=== PATIENT | male | born 1950 | race Two or more races ===

== ENCOUNTER 2024-06-08 23:50 | Emergency (ER) | payer MEDICAID, SELFPAY ==
[2024-06-09 00:26] VITALS: BP 160/83; PULSE 82; RESP 18; TEMP 36.6; O2SAT 97; BMI 32.5
--- NOTE | 2024-06-09 00:33 | PD.EDRME ---
Rapid Medical Screening Exam E Arrival date/time: 06/08/24 23:50 74-year-old male past medical history of BPH and prostatitis presents emergency department complaining of acute urinary retention. Chief Complaint: Urogenital-Male Time Seen by Provider: 06/09/24 00:17 Vital signs: Vital Signs Temperature 98 F 06/09/24 00:26 Pulse Rate 82 06/09/24 00:26 Respiratory Rate 18 06/09/24 00:26 Blood Pressure 160/83 H 06/09/24 00:26 Pulse Oximetry (%) 97 06/09/24 00:26 Oxygen Delivery Method Room Air 06/09/24 00:26 Vital signs reviewed by provider: Yes
[2024-06-09 01:28] LABS: Alanine Aminotransferase < 7 U/L (10-49); Albumin, Serum 4.6 gm/dL (3.4-4.8); Albumin/Globulin Ratio 1.4 (1.2-2.2); Alkaline Phosphatase 459 U/L (46-116); Anion Gap 10 (7-16); Aspartate Amino Transferase 23 U/L (0-34); BUN/Creatinine Ratio 17 Ratio (12-20); Bilirubin,Total 0.2 mg/dL (0.3-1.2); Blood Urea Nitrogen 34 mg/dL (9-23); Carbon Dioxide 19.5 mMol/L (20.0-31.0); Chloride 106 mMol/L (98-107); Estimated Creatinine Clearance 35.5 mL/min (>60); Globulin 3.3 gm/dL (2.3-3.5); Glucose 118 mg/dL (74-106); Osmolality,Calculated 278 (275-295); Potassium 4.9 mMol/L (3.4-5.1); Sodium 135 mMol/L (136-145); Total Protein 7.9 gm/dL (5.7-8.2); eGFR 34 See Note
[2024-06-09 01:30] LABS: Basophils % (Auto) 0 % (0-2.5); Eosinophils # (Auto) 0.2 Thou/mm3 (0.0-0.5); Eosinophils % (Auto) 2 % (0-10); Hematocrit 32.4 % (41.0-53.0); Hemoglobin 10.3 g/dL (13.5-16.0); Immature Granulocytes % (Auto) 0 % (0-0); Immature Granulocytes Auto 0.03 Thou/mm3 (0.00-0.00); Lymphocytes # (Auto) 1.1 Thou/mm3 (1.0-4.8); Lymphocytes % (Auto) 11 % (10-50); Mean Corpuscular HGB Conc 31.8 g/dl (31.0-37.0); Mean Corpuscular Hemoglobin 23.3 pg (25.0-35.0); Mean Corpuscular Volume 73 fL (80-100); Monocytes # (Auto) 0.9 Thou/mm3 (0.0-0.8); Monocytes % (Auto) 10 % (0-12); Neutrophils # (Auto) 7.2 Thou/mm3 (1.8-7.7); Neutrophils % (Auto) 77 % (37-80); Nucleated Red Blood Cell % 0 /100 WBC (0); Platelet Count 239 Thou/mm3 (140-440); RDW Standard Deviation 45.6 fL (35.1-43.9); Red Blood Count 4.42 Miln/mm3 (4.50-5.90); White Blood Count 9.4 Thou/mm3 (3.8-10.6)
--- NOTE | 2024-06-09 02:49 | EDNOTE_ITS ---
ED Male Genitalurinary RME/HPI General Chief complaint: Urogenital-Male Stated complaint: Unable to urinate Time Seen by Provider: 06/09/24 00:17 Arrival date/time: 06/08/24 23:50 RME / HPI RME / HPI Narrative: 06/08/24 23:50 74-year-old male past medical history of BPH and prostatitis presents emergency department complaining of acute urinary retention. ----- Dr. Stanford?s Main ED Evaluation: 74yo male with a history of BPH, prostatitis presents to the ED for a chief complaint of urinary retention. Patient states he had his parham catheter removed 2 months ago, reporting he was able to urinate small amounts at a time. He states he was unable to urinate this afternoon and has had lower abdominal pain, so he came in for evaluation. He denies any fever, chills or any other associated symptoms. No known allergies. Patient's urologist is Dr. Enamorado in [place]. Related Data Home Medications ?Medication ?Instructions ?Recorded ?Confirmed metformin 1,000 mg tablet 1,000 mg PO BID 10/21/17 11/30/21 atorvastatin 20 mg tablet 20 mg PO HS 09/14/21 11/14/21 gabapentin 300 mg capsule 300 mg PO TID 09/14/21 11/30/21 Previous Rx's ?Medication ?Instructions ?Recorded cephalexin 500 mg capsule 500 mg PO TID #20 caps 12/01/22 amoxicillin 500 mg-potassium 1 tab PO BID #10 tabs 01/07/24 clavulanate 125 mg tablet (Augmentin) doxycycline monohydrate 100 mg 100 mg PO BID Urinary tract 06/09/24 capsule infection 10 days #20 caps Allergies Allergy/AdvReac Type Severity Reaction Status Date / Time No Known Allergies Allergy Verified 01/11/24 12:16 Review of Systems Review of Systems Systems Reviewed: All systems reviewed, normal except as documented Past Medical History Past Medical History NEUROLOGIC: Negative Neurological Disorders or Seizures CARDIAC: Positive Cardiac Disorders and Hypertension; Negative Congestive Heart Failure RESPIRATORY: Negative Chronic Obstructive Pulmonary Disease (COPD) or Asthma GASTROINTESTINAL: Positive Gastroesophageal Reflux Disease; Negative Gastrointestinal Disorders, Gastrointestinal Bleed or Irritable Bowel GENITOURINARY: Positive Genitourinary Disorders, Prostate Cancer and Benign P rostatic Hyperplasia; Negative Renal Disease MUSCULOSKELETAL: Negative Musculoskeletal Disorders ENT: Negative Glaucoma ENDOCRINE: Positive Diabetes Mellitus Type 2; Negative Endocrine Disorders or Diabetes Mellitus Type 1 HEMATOLOGIC: Positive Anemia; Negative Blood Disorders or Sickle Cell Disease OTHER HISTORY: Positive Blood Transfusions, Radiation Therapy and Prostate Cancer; Negative Autoimmune Disease, Blood Transfusion Reaction, Anesthesia Reactions, MRSA or Clostridium Difficile Family History FAMILY HISTORY: Negative Family Cardiac Disorders Surgical History SURGICAL: Negative Ear Surgery, Abdominal Surgery, Joint Replacement, Neurologic Surgery or Vasectomy Social History SMOKING STATUS: Former smoker SECOND HAND EXPOSURE: No ED Exam Narrative Physical exam: GENERAL APPEARANCE: alert and oriented x 4, well-developed, well-nourished, in [id number] pain distress VITALS: All vitals were reviewed and the pulse ox is 97% on room air, which is normal according to my interpretation. HEENT: Normocephalic, atraumatic; pupils equal, round, reactive to light; EOMI; mucous membranes pink, moist; oropharynx clear NECK: Supple LUNGS: CTABL; no wheezes, no rales, no rhonchi HEART: Regular rate, regular rhythm; normal S1, S2; no murmurs ABDOMEN: non distended; normal BS; soft, moderate suprapubic tenderness, no guarding, no rebound; no masses, palpable bladder, no hernia BACK: no CVA tenderness EXTREMITIES: atraumatic; no edema NEUROLOGIC: awake; alert and oriented x4; cranial nerves II-XII grossly intact; no focal sensory or motor deficits PSYCHIATRIC: appropriate mood and affect SKIN: warm, dry, normal color; no rashes Course Quality Measures none Orders Category Date Time Status [place] to [place] Routine Care 06/09/24 00:33 Ordered CBC Stat Lab 06/09/24 00:52 Completed CMP [Comprehensive Metabolic Panel] Stat Lab 06/09/24 00:52 Completed Urinalysis, C/S if Indicated Stat Lab 06/09/24 03:22 Completed Urine Culture Stat Lab 06/09/24 03:22 Received Lidocaine Jelly 2% Urojet [Xylocaine Jelly 2% Urojet] Med 06/09/24 02:52 Discontinued See Dose Instructions TOP X1 ONE cefTRIAXone [Rocephin] 1,000 mg Med 06/09/24 05:28 Discontinued Lidocaine 1% 20 ml [Xylocaine 1% 20 ML] 2.1 ml IM X1 Vital Signs Vital signs: Vital Signs Temperature 98 F 06/09/24 00:26 Pulse Rate 82 06/09/24 00:26 Respiratory Rate 18 06/09/24 00:26 Blood Pressure 160/83 H 06/09/24 00:26 Pulse Oximetry (%) 97 06/09/24 00:26 Oxygen Delivery Method Room Air 06/09/24 00:26 Urogenital - Male MDM Narrative MDM Narrative:: Scribe Attestation: 06/09/24 - Gardenia Mora am scribing for and in the presence of Dr. Stanford. Patient data External records reviewed:: [facility] previous records (Per chart review, patient was seen here on 02/15/24 for gross hematuria.) Clinical information provided by:: patient Social determinants that could affect healthcare access:: none Patient has the following chronic illnesses:: HTN, BPH, prostatitis How is presenting disease/condition affected by chronic disease/condition?: exacerbated by Evaluation data The following diagnostics were reviewed and interpreted by me:: lab results Lab and/or radiology exams considered but not ordered:: none Interpretation Summary: UA is positive for a UTI, according to my interpretation. Medications / Prescriptions Medications or Prescriptions considered but not ordered:: none Medication administrations:: Medication Administration History Discontinued Medications Ceftriaxone Sodium 1,000 mg/ (Lidocaine HCl 2.1 ml) 0 mg IM X1 ONE Stop: 06/09/24 05:29 Last Admin: 06/09/24 05:42 Dose: 1,000 mg Documented By: GB Lidocaine HCl (Lidocaine Jelly 2% (Urojet) 10 Ml Tube) 0 ml TOP X1 ONE Stop: 06/09/24 02:53 Last Admin: 06/09/24 04:07 Dose: 10 ml Documented By: SE see above Consultations Consultation(s) initiated? (list below): No Diagnosis Urogenital Male Differential Diagnosis: urinary tract infection, prostatitis, acute retention of urine and other (pyelonephritis) Most likely diagnosis given after review of the tests above:: see below Admission Indicated Admission indicated?: not indicated Admission Request Was there a request for admission?: No Disposition Plan Disposition Plan: Discharge Discharge Attestation Discharge Attestation: The patient and all family members were given an opportunity to ask questions and understood the discharge instructions. Discharge instructions specifically effects, indications for sooner follow up or return to the emergency department, and the expected course of current diagnosis. Patient condition: Stable Discharge Plan Plan Patient Disposition: HOME (Self Care) Disposition Comment: Stable for discharge Patient condition on transfer: Stable Prescriptions/Referrals Prescriptions/Med Rec: New doxycycline monohydrate 100 mg capsule 100 mg PO BID 10 Days Qty: 20 0RF No Action metformin 1,000 mg Tablet 1,000 mg PO BID atorvastatin 20 mg tablet 20 mg PO HS Patient Comments: TAKE 1 TABLET BY MOUTH AT BEDTIME gabapentin 300 mg capsule 300 mg PO TID Patient Comments: TAKE 1 CAPSULE BY MOUTH THREE TIMES DAILY FOR LEG PAIN cephalexin 500 mg capsule 500 mg PO TID Qty: 20 0RF amoxicillin-pot clavulanate [Augmentin] 500-125 mg tablet 1 tab PO BID Qty: 10 0RF Referrals: Bro Venegas MD ([facility]) [Primary Care Provider] - In 1 week Problem List Clinical Impression: Acute urinary retention, Urinary tract infection Patient/Caregiver Discharge Instructions Discharge Activity: activity as tolerated Education Materials: Urinary Tract Infections in Men, ED Urinary Retention, Male Additional Instructions: You should follow-up with your urologist over in [place] within the next week. You should also follow-up with your primary care doctor within the next several days If you are not improving within the next 48 hours or you notice yourself worsening in any way please return to the emergency department and we will help you You have a prescription for antibiotics waiting for you at your pharmacy. These are called doxycycline. You should take your antibiotics as directed until they are completely gone Print Language: Polish Stand Alone Forms: Antonette Award Info., Patient Portal Info Letter
[2024-06-09 03:50] LABS: Collection Type, Urine Clean Catch; Squamous Epithelial Cell,Urine 0 /hpf (0-5)
[2024-06-09] MEDS: LIDOCAINE JELLY 2% (Urojet) 10 ML TUBE TOP (04:07)
[2024-06-09 04:46] LABS: Bacteria,Urine 1+; Bilirubin,Urine Negative (Negative); Blood,Urine 2+ (Negative); Color,Urine Lt-Yellow (Lt Yel-Yel); Glucose, Urine Negative (Negative); Ketones,Urine Negative (Negative); Leukocyte Esterase,Urine Positive (Negative); Nitrite,Urine Positive (Negative); Protein,Urine 1+ (Neg - Trace); RBC,Urine 39 /hpf (0-3); Specific Gravity,Urine 1.013 (1.001-1.035); Urobilinogen,Urine Negative mg/dL (0.0-1.0); WBC,Urine 352 /hpf (0-5)
[2024-06-09 04:48] LABS: Clarity,Urine Hazy (Clear/Hazy); Culture Indicated,Urine Yes
[2024-06-09] MEDS: cefTRIAXone 1,000 MG, LIDOCAINE 1% 20 ML 2.1 ML IM (05:42)
== END 2024-06-09 06:02 | disposition home or self-care (01) ==
PROVIDERS: Emergency Provider Emergency Medicine; PCP Obstetrics & Gynecology
DX: N40.1 Benign prostatic hyperplasia with lower urinary tract symptoms (principal); R33.8 Other retention of urine; N39.0 Urinary tract infection, site not specified
CPT/HCPCS: 51702; 36415; 80053; 81001; 85025; 87077; 87086; 87186; 96372; 99283; J0696; J3490

== ENCOUNTER 2024-06-10 08:31 | Emergency (ER) | payer MEDICAID, SELFPAY ==
[2024-06-10 08:32] VITALS: BMI 32.9
--- NOTE | 2024-06-10 08:37 | EDNOTE_ITS ---
ED General RME/HPI General Chief complaint: General Adult/Misc Complain Stated complaint: NEED HODGE CHANGED Time Seen by Provider: 06/10/24 08:33 Arrival date/time: 06/10/24 08:31 74-year-old male with history of urinary retention presents emergency department today requesting Hodge catheter removal patient reports that he is leaking around his catheter and no longer wants a catheter he does not want a catheter placed just wants it removed. Patient reports no fever nausea or vomiting no headache dizziness weakness Limitations: no limitations Related Data Home Medications ?Medication ?Instructions ?Recorded ?Confirmed metformin 1,000 mg tablet 1,000 mg PO BID 10/21/17 11/30/21 atorvastatin 20 mg tablet 20 mg PO HS 09/14/21 11/14/21 gabapentin 300 mg capsule 300 mg PO TID 09/14/21 11/30/21 Previous Rx's ?Medication ?Instructions ?Recorded cephalexin 500 mg capsule 500 mg PO TID #20 caps 12/01/22 amoxicillin 500 mg-potassium 1 tab PO BID #10 tabs 01/07/24 clavulanate 125 mg tablet (Augmentin) doxycycline monohydrate 100 mg 100 mg PO BID Urinary tract 06/09/24 capsule infection 10 days #20 caps Allergies Allergy/AdvReac Type Severity Reaction Status Date / Time No Known Allergies Allergy Verified 01/11/24 12:16 Review of Systems Review of Systems Systems Reviewed: All systems reviewed, normal except as documented Constitutional Constitutional: Reports system reviewed and no additional complaints, except as documented, Denies fever(s) and Denies headache(s) Eyes Eyes: Reports system reviewed and no additional complaints, except as documented and Denies blurry vision ENT Ears, Nose, Mouth, and Throat: Reports system reviewed and no additional complaints, except as documented, Denies headache(s), Denies nasal congestion and Denies nasal discharge Cardiovascular Cardiovascular: Reports system reviewed and no additional complaints, except as documented, Denies chest pain and Denies dyspnea Respiratory Respiratory: Reports system reviewed and no additional complaints, except as documented, Denies chest congestion, Denies cough and Denies dyspnea Gastrointestinal Gastrointestinal: Reports system reviewed and no additional complaints, except as documented and Denies abdominal pain Genitourinary Genitourinary: Reports system reviewed and no additional complaints, except as documented and Reports other (Hodge catheter in place) Integumentary/Breasts Skin/Breast: Reports system reviewed and no additional complaints, except as documented and Denies rash Neurologic Neurologic: Reports system reviewed and no additional complaints, except as documented, Reports as per HPI and Denies headache(s) Past Medical History Past Medical History NEUROLOGIC: Negative Neurological Disorders or Seizures CARDIAC: Positive Cardiac Disorders and Hypertension; Negative Congestive Heart Failure RESPIRATORY: Negative Chronic Obstructive Pulmonary Disease (COPD) or Asthma GASTROINTESTINAL: Positive Gastroesophageal Reflux Disease; Negative Gastrointestinal Disorders, Gastrointestinal Bleed or Irritable Bowel GENITOURINARY: Positive Genitourinary Disorders, Prostate Cancer and Benign Prostatic Hyperplasia; Negative Renal Disease MUSCULOSKELETAL: Negative Musculoskeletal Disorders ENT: Negative Glaucoma ENDOCRINE: Positive Diabetes Mellitus Type 2; Negative Endocrine Disorders or Diabetes Mellitus Type 1 HEMATOLOGIC: Positive Anemia; Negative Blood Disorders or Sickle Cell Disease OTHER HISTORY: Positive Blood Transfusions, Radiation Therapy and Prostate Cancer; Negative Autoimmune Disease, Blood Transfusion Reaction, Anesthesia Reactions, MRSA or Clostridium Difficile Family History FAMILY HISTORY: Negative Family Cardiac Disorders Surgical History SURGICAL: Negative Ear Surgery, Abdominal Surgery, Joint Replacement, Neurologic Surgery or Vasectomy Social History SMOKING STATUS: Never smoker SECOND HAND EXPOSURE: No ED Exam General Limitations: Present no limitations General appearance: Present alert and in no apparent distress Head Head exam: Present atraumatic Eye Eye exam: Present normal appearance, PERRL and EOMI ENT ENT exam: Present normal exam, normal oropharynx and mucous membranes moist Neck Neck exam: Present normal inspection, full ROM and trachea midline Chest Chest inspection: Present normal inspection and symmetric chest wall rise Respiratory Respiratory exam: Present normal lung sounds bilaterally Cardiovascular Cardiovascular exam: Present regular rate, normal rhythm and normal heart sounds Abdominal Exam Abdominal exam: Present soft and normal bowel sounds exam: Present normal testicular lie and other (Hodge catheter in place); Absent testicular tenderness, urethral discharge or scrotal swelling Extremities Exam Extremities exam: Present normal inspection and full ROM Back Exam Back exam: Present normal inspection and full ROM Neurological Exam Neurological exam: Present alert, oriented X3 and CN II-XII intact Psychiatric Psychiatric exam: Present normal affect and normal mood Skin Skin exam: Present warm, dry, intact and normal color Course Quality Measures none Orders Category Date Time Status Urinary Catheter, Remove NOW Care 06/10/24 08:49 Ordered Vital Signs Vital signs: Vital Signs Temperature 98.3 F 06/10/24 08:39 Pulse Rate 94 06/10/24 08:39 Respiratory Rate 16 06/10/24 08:39 Blood Pressure 139/76 H 01/09/25 08:39 Pulse Oximetry (%) 99 06/10/24 08:39 Oxygen Delivery Method Room Air 06/10/24 08:39 O2 saturation 99% room air within normal limits [facility] Patient data External records reviewed:: [facility] previous records Clinical information provided by:: patient Social determinants that could affect healthcare access:: none Patient has the following chronic illnesses:: see hx How is presenting disease/condition affected by chronic disease/condition?: caused by Evaluation data The following diagnostics were reviewed and interpreted by me:: other (specify) (N/A) Lab and/or radiology exams considered but not ordered:: Consider not ordered Interpretation Summary: N/A Medications Medications considered but not ordered:: No meds Medication administrations:: No meds Consultations Consultation(s) initiated? (list below): No Diagnosis Differential Diagnosis ED Complaint MDM: Hodge catheter removal, urinary retention Most likely diagnosis given after review of the tests above:: Chronic urinary retention, Hodge catheter in place Admission Indicated Admission indicated?: not indicated Explain why admission is indicated or not indicated:: reviewed by me Admission Request Was there a request for admission?: No Disposition Plan Disposition Plan: Discharge Discharge Attestation Discharge Attestation: The patient and all family members were given an opportunity to ask questions and understood the discharge instructions. Discharge instructions specifically effects, indications for sooner follow up or return to the emergency department, and the expected course of current diagnosis. Patient condition: Stable Medical Decision Making [facility] Narrative MDM Narrative: 74-year-old male with history of urinary retention presents emergency department today requesting Hodge catheter removal patient reports that he is leaking around his catheter and no longer wants a catheter he does not want a catheter placed just wants it removed. Patient reports no fever nausea or vomiting no headache dizziness weakness On exam patient well-appearing patient does not appear ill or toxic patient is soft nontender abdomen Patient's Hodge catheter was removed patient is urinating without difficulty It was clearly explained to the patient that he may not need to return for replacement of Hodge catheter patient states understanding For emergent concerns patient instructed to return immediately otherwise follow- up primary care doctor next 24 to 48 hours for further evaluation Differential Diagnosis Differential Diagnosis: Hodge catheter removal, urinary retention Medical Records Medical records reviewed: Yes I reviewed the patient's medical records. Discharge Plan Plan Patient Disposition: HOME (Self Care) Disposition Comment: Stable Prescriptions/Referrals Prescriptions/Med Rec: No Action metformin 1,000 mg Tablet 1,000 mg PO BID atorvastatin 20 mg tablet 20 mg PO HS Patient Comments: TAKE 1 TABLET BY MOUTH AT BEDTIME gabapentin 300 mg capsule 300 mg PO TID Patient Comments: TAKE 1 CAPSULE BY MOUTH THREE TIMES DAILY FOR LEG PAIN cephalexin 500 mg capsule 500 mg PO TID Qty: 20 0RF amoxicillin-pot clavulanate [Augmentin] 500-125 mg tablet 1 tab PO BID Qty: 10 0RF doxycycline monohydrate 100 mg capsule 100 mg PO BID 10 Days Qty: 20 0RF Problem List Clinical Impression: Retention of urine, Hodge catheter problem Patient/Caregiver Discharge Instructions Education Materials: ED Hodge Catheter, Care Additional Instructions: Please follow up with your primary care doctor in the next 24-48hrs for any worsening symptoms return here immediately Print Language: Belarusian Stand Alone Forms: Antonette Award Info., Patient Portal Info Letter PA/SUGAR MIXER Supervising Physician PA/JITENDRA Supervising Physician: Dr. Bella
[2024-06-10 08:39] VITALS: BP 139/76; PULSE 94; RESP 16; TEMP 36.8; O2SAT 99; BMI 31.1
== END 2024-06-10 08:51 | disposition home or self-care (01) ==
LOC: SERX 08:59
PROVIDERS: Emergency Provider Emergency Medicine
DX: R33.8 Other retention of urine (principal)
CPT/HCPCS: 99282

== ENCOUNTER 2024-06-23 08:46 | Emergency (ER) | payer MEDICAID, SELFPAY ==
[2024-06-23 09:06] VITALS: BP 124/63; PULSE 97; RESP 18; TEMP 36.7; O2SAT 99; BMI 30.7
--- NOTE | 2024-06-23 09:47 | EDNOTE_ITS ---
ED Male Genitalurinary RME/HPI General Chief complaint: Urogenital-Male Stated complaint: urine is plugged, cannot urinate since 1200 am Time Seen by Provider: 06/23/24 08:59 Arrival date/time: 06/23/24 08:46 74-year-old male with acute on chronic urinary retention secondary to prostamegaly presents to the emergency department today stating he is having urinary retention patient reports that he follows with Dr. Enamorado in [place] urologist there are no other associated symptoms or aggravating factors no other modifying factors, patient denies taking medication before coming to ER today Limitations: no limitations Related Data Home Medications ?Medication ?Instructions ?Recorded ?Confirmed metformin 1,000 mg tablet 1,000 mg PO BID 10/21/17 11/30/21 atorvastatin 20 mg tablet 20 mg PO HS 09/14/21 11/14/21 gabapentin 300 mg capsule 300 mg PO TID 09/14/21 11/30/21 Previous Rx's ?Medication ?Instructions ?Recorded cephalexin 500 mg capsule 500 mg PO TID #20 caps 12/01/22 amoxicillin 500 mg-potassium 1 tab PO BID #10 tabs 01/07/24 clavulanate 125 mg tablet (Augmentin) Allergies Allergy/AdvReac Type Severity Reaction Status Date / Time No Known Allergies Allergy Verified 06/23/24 08:47 Review of Systems Review of Systems Systems Reviewed: All systems reviewed, normal except as documented Constitutional Constitutional: Reports system reviewed and no additional complaints, except as documented, Denies fever(s) and Denies headache(s) Eyes Eyes: Reports system reviewed and no additional complaints, except as documented and Denies blurry vision ENT Ears, Nose, Mouth, and Throat: Reports system reviewed and no additional complaints, except as documented, Denies headache(s), Denies nasal congestion and Denies nasal discharge Cardiovascular Cardiovascular: Reports system reviewed and no additional complaints, except as documented, Denies chest pain and Denies dyspnea Respiratory Respiratory: Reports system reviewed and no additional complaints, except as documented, Denies chest congestion, Denies cough and Denies dyspnea Gastrointestinal Gastrointestinal: Reports system reviewed and no additional complaints, except as documented and Denies abdominal pain Genitourinary Genitourinary: Reports system reviewed and no additional complaints, except as documented, Reports oliguria, Denies testicular mass, Denies testicular pain and Reports other (Urinary retention) Integumentary/Breasts Skin/Breast: Reports system reviewed and no additional complaints, except as documented and Denies rash Neurologic Neurologic: Reports system reviewed and no additional complaints, except as documented, Reports as per HPI and Denies headache(s) Past Medical History Past Medical History NEUROLOGIC: Negative Neurological Disorders or Seizures CARDIAC: Positive Cardiac Disorders and Hypertension; Negative Congestive Heart Failure RESPIRATORY: Negative Chronic Obstructive Pulmonary Disease (COPD) or Asthma GASTROINTESTINAL: Positive Gastroesophageal Reflux Disease; Negative Gastrointestinal Disorders, Gastrointestinal Bleed or Irritable Bowel GENITOURINARY: Positive Genitourinary Disorders, Prostate Cancer and Benign Prostatic Hyperplasia; Negative Renal Disease MUSCULOSKELETAL: Negative Musculoskeletal Disorders ENT: Negative Glaucoma ENDOCRINE: Positive Diabetes Mellitus Type 2; Negative Endocrine Disorders or Diabetes Mellitus Type 1 HEMATOLOGIC: Positive Anemia; Negative Blood Disorders or Sickle Cell Disease OTHER HISTORY: Positive Blood Transfusions, Radiation Therapy and Prostate Cancer; Negative Autoimmune Disease, Blood Transfusion Reaction, Anesthesia Reactions, MRSA or Clostridium Difficile Family History FAMILY HISTORY: Negative Family Cardiac Disorders Surgical History SURGICAL: Negative Ear Surgery, Abdominal Surgery, Joint Replacement, Neurologic Surgery or Vasectomy Social History SMOKING STATUS: Never smoker SECOND HAND EXPOSURE: No ED Exam General Limitations: Present no limitations General appearance: Present alert and in no apparent distress Head Head exam: Present atraumatic Eye Eye exam: Present normal appearance, PERRL and EOMI ENT ENT exam: Present normal exam, normal oropharynx and mucous membranes moist Neck Neck exam: Present normal inspection, full ROM and trachea midline Chest Chest inspection: Present normal inspection and symmetric chest wall rise Respiratory Respiratory exam: Present normal lung sounds bilaterally Cardiovascular Cardiovascular exam: Present regular rate, normal rhythm and normal heart sounds Abdominal Exam Abdominal exam: Present soft and normal bowel sounds; Absent distention, tenderness, guarding, rebound or rigidity Extremities Exam Extremities exam: Present normal inspection and full ROM Back Exam Back exam: Present normal inspection and full ROM Neurological Exam Neurological exam: Present alert, oriented X3, CN II-XII intact, normal gait and reflexes normal; Absent motor sensory deficit Psychiatric Psychiatric exam: Present normal affect and normal mood Skin Skin exam: Present warm, dry, intact and normal color Course Quality Measures none Orders Category Date Time Status Urinary Catheter QS Care 06/23/24 09:46 Completed Lidocaine Jelly 2% Urojet [Xylocaine Jelly 2% Urojet] Med 06/23/24 09:09 Discontinued See Dose Instructions TOP X1 ONE Vital Signs Vital signs: Vital Signs Temperature 98.0 F 01/22/25 09:06 Pulse Rate 97 06/23/24 09:06 Respiratory Rate 18 06/23/24 09:06 Blood Pressure 124/63 06/23/24 09:06 Pulse Oximetry (%) 99 06/23/24 09:06 Oxygen Delivery Method Room Air 06/23/24 09:06 O2 saturation 99% room air within normal limits Urogenital - Male MDM Narrative MDM Narrative:: 74-year-old male with acute on chronic urinary retention secondary to prostamegaly presents to the emergency department today stating he is having urinary retention patient reports that he follows with Dr. Enamorado in [place] urologist there are no other associated symptoms or aggravating factors no other modifying factors, patient denies taking medication before coming to ER today Ojeda catheter was placed patient reports significant improvement of his symptoms patient reports he would like to go home at this time Patient discharged home in no distress to follow-up with urologist in the next 24 to 48 hours and for any worsening symptoms to return to the ER immediately Patient data External records reviewed:: [facility] previous records Clinical information provided by:: patient Social determinants that could affect healthcare access:: none Patient has the following chronic illnesses:: Urinary retention How is presenting disease/condition affected by chronic disease/condition?: caused by Evaluation data The following diagnostics were reviewed and interpreted by me:: other (specify) (N/A) Lab and/or radiology exams considered but not ordered:: Consider not ordered Interpretation Summary: N/A Medications / Prescriptions Medications or Prescriptions considered but not ordered:: Given Medication administrations:: Medication Administration History Discontinued Medications Lidocaine HCl (Lidocaine Jelly 2% (Urojet) 10 Ml Tube) 0 ml TOP X1 ONE Stop: 06/23/24 09:10 Last Admin: 06/23/24 09:48 Dose: 10 ml Documented By: GM Given Consultations Consultation(s) initiated? (list below): No Diagnosis Urogenital Male Differential Diagnosis: urinary tract infection, epididymitis, genital herpes simplex and prostatitis Most likely diagnosis given after review of the tests above:: Urinary retention Admission Indicated Admission indicated?: not indicated Admission Request Was there a request for admission?: No Disposition Plan Disposition Plan: Discharge Discharge Attestation Discharge Attestation: The patient and all family members were given an opportunity to ask questions and understood the discharge instructions. Discharge instructions specifically effects, indications for sooner follow up or return to the emergency department, and the expected course of current diagnosis. Patient condition: Stable Discharge Plan Plan Patient Disposition: HOME (Self Care) Disposition Comment: Stable Prescriptions/Referrals Prescriptions/Med Rec: No Action metformin 1,000 mg Tablet 1,000 mg PO BID atorvastatin 20 mg tablet 20 mg PO HS Patient Comments: TAKE 1 TABLET BY MOUTH AT BEDTIME gabapentin 300 mg capsule 300 mg PO TID Patient Comments: TAKE 1 CAPSULE BY MOUTH THREE TIMES DAILY FOR LEG PAIN cephalexin 500 mg capsule 500 mg PO TID Qty: 20 0RF amoxicillin-pot clavulanate [Augmentin] 500-125 mg tablet 1 tab PO BID Qty: 10 0RF Problem List Clinical Impression: Acute on chronic urinary retention Patient/Caregiver Discharge Instructions Additional Instructions: Please follow-up with your urologist as discussed for worsening symptoms return immediately Print Language: [place] Stand Alone Forms: Antonette Award Info., Patient Portal Info Letter PA/[employer] Supervising Physician PA/JITENDRA Supervising Physician:
[2024-06-23] MEDS: LIDOCAINE JELLY 2% (Urojet) 10 ML TUBE TOP (09:48)
--- NOTE | 2024-06-23 10:04 | PC.NURSE ---
PT'S HODGE BAG CHANGED INTO LEG BAG AND PT GIVEN AN EXTRA LEG BAG WELL.
== END 2024-06-23 10:05 | disposition home or self-care (01) ==
LOC: SERX 10:09
PROVIDERS: Emergency Provider Emergency Medicine
DX: N40.1 Benign prostatic hyperplasia with lower urinary tract symptoms (principal); R33.8 Other retention of urine
CPT/HCPCS: 51702; 99283

== ENCOUNTER 2024-06-26 11:11 | Emergency (ER) | payer MEDICAID, SELFPAY ==
[2024-06-26 11:12] VITALS: BMI 30.5
[2024-06-26 12:03] VITALS: BP 136/82; PULSE 87; RESP 19; TEMP 36.8; O2SAT 99; BMI 29.7
--- NOTE | 2024-06-26 12:07 | EDNOTE_ITS ---
ED General RME/HPI General Chief complaint: Abdominal Pain Stated complaint: LOWER ABD PAIN, HODGE LEAKING AND UNABLE TO VOID Time Seen by Provider: 06/26/24 11:37 Arrival date/time: 06/26/24 11:11 RME / HPI RME / HPI narrative: 74-year-old male patient with significant history of prostate problem, came in for evaluation regarding urine leaking around the meatus around the Hodge catheter. This been ongoing since 3 days prior to ER visit. This time associated with suprapubic discomfort and distention. Currently taking antibiotic for UTI. Denies any fever denies any vomiting denies any other complaints. Patient is currently followed by a urologist and oncologist. Related Data Home Medications ?Medication ?Instructions ?Recorded ?Confirmed metformin 1,000 mg tablet 1,000 mg PO BID 10/21/17 11/30/21 atorvastatin 20 mg tablet 20 mg PO HS 09/14/21 11/14/21 gabapentin 300 mg capsule 300 mg PO TID 09/14/21 11/30/21 Previous Rx's ?Medication ?Instructions ?Recorded cephalexin 500 mg capsule 500 mg PO TID #20 caps 12/01/22 amoxicillin 500 mg-potassium 1 tab PO BID #10 tabs 01/07/24 clavulanate 125 mg tablet (Augmentin) Allergies Allergy/AdvReac Type Severity Reaction Status Date / Time No Known Allergies Allergy Verified 06/26/24 11:17 Review of Systems Review of Systems Narrative Review of Systems: Review of system reviewed and within normal limits except mentioned in HPI ED Exam Narrative Physical exam: VITAL SIGNS: Reviewed. GENERAL APPEARANCE: Alert and interactive, follows commands, no acute distress, HEAD AND FACE: Non-traumatic. ENT: PERRL, pink conjunctivitis, eyelid no trauma, Mucous membrane moist. NECK: Supple, nontender, no nuchal rigidity. CHEST: No tenderness, no crepitus, no paradoxical movement, no retractions. LUNGS: Clear, well ventilated, symmetric, no rales, no wheezing, no ronchi, no stridor, good breath sounds bilaterally. HEART: Regular rate, regular rhythm, no murmur, no gallops. ABDOMEN: Soft, positive bowel sounds, nondistended, no guarding, nontender, no rebound, no masses, RECTAL: Deferred. GENITAL: Hodge catheter intact, urine leaking around the meatus/Hodge catheter NEUROLOGICAL: Gross motor function intact sensory function intact, Appropriate for age. MUSCULOSKELETAL: low back nontender, full range of motion. EXTREMITIES: Nontender, full range of motion. SKIN: Color pink, dry, no rash, no lacerations, no abrasions, no contusions. LYMPHATICS: Deferred. Course Quality Measures none Orders Category Date Time Status Urinary Catheter QS Care 06/26/24 12:31 Active Urinary Catheter, Remove ONCE Care 06/26/24 12:31 Completed Lidocaine Jelly 2% Urojet [Xylocaine Jelly 2% Urojet] Med 06/26/24 12:06 Discontinued See Dose Instructions TOP X1 ONE Vital Signs Vital signs: Vital Signs Temperature 98.3 F 06/26/24 12:03 Pulse Rate 87 06/26/24 12:03 Respiratory Rate 19 06/26/24 12:03 Blood Pressure 136/82 H 06/26/24 12:03 Pulse Oximetry (%) 99 06/26/24 12:03 Oxygen Delivery Method Room Air 06/26/24 12:03 [facility] Patient data External records reviewed:: None Clinical information provided by:: patient Social determinants that could affect healthcare access:: none Patient has the following chronic illnesses:: Prostate problem, chronic Hodge catheter How is presenting disease/condition affected by chronic disease/condition?: exacerbated by Evaluation data The following diagnostics were reviewed and interpreted by me:: other (specify) (None) Lab and/or radiology exams considered but not ordered:: None Interpretation Summary: None Medications Medications considered but not ordered:: None Medication administrations:: Medication Administration History Discontinued Medications Lidocaine HCl (Lidocaine Jelly 2% (Urojet) 10 Ml Tube) 0 ml TOP X1 ONE Stop: 06/26/24 12:07 Last Admin: 06/26/24 12:30 Dose: 10 ml Documented By: TINA Lidocaine jelly Consultations Consultation(s) initiated? (list below): No Diagnosis Differential Diagnosis ED Complaint MDM: Encounter Hodge catheter replacement Most likely diagnosis given after review of the tests above:: Encounter with Hodge catheter replacement Admission Indicated Admission indicated?: not indicated Explain why admission is indicated or not indicated:: Stable Admission Request Was there a request for admission?: No Disposition Plan Disposition Plan: Discharge Discharge Attestation Discharge Attestation: The patient and all family members were given an opportunity to ask questions and understood the discharge instructions. Discharge instructions specifically effects, indications for sooner follow up or return to the emergency department, and the expected course of current diagnosis. Patient condition: Stable Medical Decision Making MDM Narrative MDM Narrative: 74-year-old male patient with significant history of prostate problem, came in for evaluation regarding urine leaking around the meatus around the Hodge catheter. This been ongoing since 3 days prior to ER visit. This time associated with suprapubic discomfort and distention. Currently taking antibiotic for UTI. Denies any fever denies any vomiting denies any other complaints. Patient is currently followed by a urologist and oncologist. Hodge catheter was removed and replaced with [place] 20 Hodge catheter and patient is tolerating the procedure well. Patient is happy and ready to go home Patient appears nontoxic and hemodynamically stable. Patient discharged home and instructed to follow-up with primary care provider in 24 to 48 hours. Instructed to return to the emergency department immediately if worsening of symptoms Differential Diagnosis Differential Diagnosis: Encounter Hodge catheter replacement Discharge Plan Plan Patient Disposition: HOME (Self Care) Disposition Comment: Stable Prescriptions/Referrals Prescriptions/Med Rec: No Action metformin 1,000 mg Tablet 1,000 mg PO BID atorvastatin 20 mg tablet 20 mg PO HS Patient Comments: TAKE 1 TABLET BY MOUTH AT BEDTIME gabapentin 300 mg capsule 300 mg PO TID Patient Comments: TAKE 1 CAPSULE BY MOUTH THREE TIMES DAILY FOR LEG PAIN cephalexin 500 mg capsule 500 mg PO TID Qty: 20 0RF amoxicillin-pot clavulanate [Augmentin] 500-125 mg tablet 1 tab PO BID Qty: 10 0RF Problem List Clinical Impression: Encounter for Hodge catheter replacement Patient/Caregiver Discharge Instructions Discharge Activity: activity as tolerated Education Materials: ED Hodge Catheter, Care Additional Instructions: Thank you for the opportunity for serving you today. You are stable for discharged . You are advised to: Follow-up with your PCP in 1 to 2 days Return to ED for worsening of symptoms Increase oral fluids Print Language: Korean Stand Alone Forms: Antonette Award Info., Patient Portal Info Letter PA/[employer] Supervising Physician LATOYA/JITENDRA Supervising Physician: MD korin
[2024-06-26] MEDS: LIDOCAINE JELLY 2% (Urojet) 10 ML TUBE TOP (12:30)
== END 2024-06-26 12:46 | disposition home or self-care (01) ==
PROVIDERS: Emergency Provider Emergency Medicine; PCP Nurse Practitioner Family
DX: Z46.6 Encounter for fitting and adjustment of urinary device (principal); N39.0 Urinary tract infection, site not specified
CPT/HCPCS: 51702; 99283

== ENCOUNTER 2024-08-03 09:09 | Outpatient (CLI) | payer MEDICAID, SELFPAY ==
[2024-07-30 13:15] VITALS: BMI 28.1
[2024-08-02 11:02] LABS: Basophils % (Auto) 1 % (0-2.5); Eosinophils # (Auto) 0.1 Thou/mm3 (0.0-0.5); Eosinophils % (Auto) 2 % (0-10); Hematocrit 36.8 % (41.0-53.0); Hemoglobin 11.4 g/dL (13.5-16.0); Immature Granulocytes % (Auto) 0 % (0-0); Immature Granulocytes Auto 0.02 Thou/mm3 (0.00-0.00); Lymphocytes # (Auto) 0.9 Thou/mm3 (1.0-4.8); Lymphocytes % (Auto) 14 % (10-50); Mean Corpuscular Hemoglobin 23.5 pg (25.0-35.0); Mean Corpuscular Volume 76 fL (80-100); Monocytes # (Auto) 0.6 Thou/mm3 (0.0-0.8); Monocytes % (Auto) 9 % (0-12); Neutrophils # (Auto) 4.7 Thou/mm3 (1.8-7.7); Neutrophils % (Auto) 74 % (37-80); Nucleated Red Blood Cell % 0 /100 WBC (0); Platelet Count 296 Thou/mm3 (140-440); RDW Standard Deviation 48.7 fL (35.1-43.9); Red Blood Count 4.86 Miln/mm3 (4.50-5.90); White Blood Count 6.3 Thou/mm3 (3.8-10.6)
[2024-08-02 11:07] LABS: Partial Thromboplastin Time 28.7 Seconds (22.0-36.0); Prothrombin Time 11.4 Seconds (9.0-12.2)
[2024-08-02 11:08] LABS: Blood Urea Nitrogen 33 mg/dL (9-23); Creatinine (Component) 1.8 mg/dL (0.6-1.3); Estimated Creatinine Clearance 36.8 mL/min (>60); eGFR 39 See Note
[2024-08-03] VITALS (11 sets, daily range): BP systolic 120–169; BP diastolic 67–90; PULSE 61–77; RESP 16–18; TEMP 36.7–36.8; O2SAT 94–99
--- NOTE | 2024-08-03 09:30 | XR_ITS ---
Examination: CT guided percutaneous biopsy pulmonary mass right upper lobe CT thorax without intravenous contrast Date and time of procedure: August 03, 2024 at 1212 hours INDICATIONS: Multiple metastatic pulmonary nodules on CT chest study May 17, 2024 Informed consent provided. A timeout was completed verifying correct patient, procedure, site and positioning. Technique: Axial 3 mm sections were obtained for localization a pulmonary mass right upper lobe Appropriate area is marked. The patient's site was prepped and draped in sterile fashion Maximal sterile barrier technique utilized, including hand hygiene Local anesthesia was obtained with 1% lidocaine. Low dose protocols were performed. One or more of the following dose reduction techniques were used; automated exposure control, adjustment of the mA and/or KV according to patient size, use of iterative reconstruction technique. Utilizing CT fluoroscopic guidance 6 core biopsies obtained of the pulmonary mass right upper lobe utilizing 21-gauge needle Patient appears in stable condition during this procedure. At completion of the procedure, the patient is in satisfactory condition. Estimated blood loss 0 cc Complete pathology report to follow. Impression: Successful CT-guided percutaneous biopsies pulmonary mass right upper lobe
--- NOTE | 2024-08-03 09:30 | XR_ITS ---
Examination: CT chest, without intravenous contrast. Sagittal and coronal 2-D reconstructions. Exam date and time: 1 42,025 1033 hours INDICATIONS: History metastatic pulmonary nodules CTDI:vol (mGy) 13.3 DLP: (mGycm) 182 Technique: Multiple 3.0 mm axial sections of the chest to been obtained. Bone and lung density settings are obtained. Sagittal and coronal 2-D reconstructions have been obtained. Low dose protocols were performed. One or more of the following dose reduction techniques were used; automated exposure control, adjustment of the mA and/or KV according to patient size, use of iterative reconstruction technique. Findings: No thoracic aortic aneurysmal dilatation Right tracheobronchial and aortopulmonary window adenopathy Bilateral hilar lymphadenopathy Numerous bilateral pulmonary nodules, including a 4 cm pulmonary nodule right upper lobe that would be safe for biopsy No lobar pneumonia No visualized liver or splenic lesion Distended gallbladder No pancreatic mass Partial visualization moderate right hydronephrosis Focal areas of sclerosis in thoracic vertebral bodies consistent with osseous metastatic disease IMPRESSION: Numerous metastatic pulmonary nodules Osseous metastatic disease
[2024-08-03] MEDS: SODIUM CHLORIDE 0.9% 500 ML 500 ML 20 ML IV (12:00)
[2024-08-03] MEDS: fentaNYL CIT INJ 50 mCg/ML AMP 2ML 75 MCG IVP (12:26)
--- NOTE | 2024-08-03 12:44 | XR_ITS ---
Examination: AP chest single view Technique one AP upright portable chest single view Exam date and time: August 03, 2024 1309 hours INDICATIONS: Post lung biopsy. FINDINGS: No pneumothorax post lung biopsy Multiple bilateral pulmonary nodules IMPRESSION: No pneumothorax post lung biopsy
--- NOTE | 2024-08-03 14:10 | XR_ITS ---
Examination: AP chest single view Technique one AP portable upright chest single view Exam date and time: August 03, 2024 1419 hours INDICATIONS: Post lung biopsy today. FINDINGS: Numerous bilateral metastatic pulmonary nodules,. No pneumothorax Normal heart size IMPRESSION: No pneumothorax post biopsy right upper lobe pulmonary nodule today
== END 2024-08-03 14:22 | disposition home or self-care (01) ==
PROVIDERS: Radiology Diagnostic Radiology; PCP Internal Medicine Hematology & Oncology; Referring Provider Internal Medicine Hematology & Oncology; Visit Provider Internal Medicine Hematology & Oncology
DX: C78.00 Secondary malignant neoplasm of unspecified lung (principal); C61 Malignant neoplasm of prostate; C78.01 Secondary malignant neoplasm of right lung; C78.02 Secondary malignant neoplasm of left lung; Z01.818 Encounter for other preprocedural examination
CPT/HCPCS: 32408; 36415; 71250; 77012; 82565; 84520; 85025; 85610; 85730; J3010; J7040

== ENCOUNTER → 2024-08-05 | Outpatient (CLI) | payer MEDICAID, SELFPAY ==
--- NOTE | 2024-08-05 08:31 | XR_ITS ---
EXAMINATION: PET/CT FUSION SKULL TO THIGH EXAM DATE AND TIME: August 05, 2024 0851 hours INDICATIONS: Numerous bilateral pulmonary nodules, including 4 cm pulmonary nodule right upper lobe on CT chest 2024, staging CTDI:vol (mGy) 7.09 DLP: (mGycm) 735.59 PROCEDURE: 16.3 mCi FDG was administered intravenously To allow for distribution and uptake of radiotracer, the patient was allowed to rest quietly in a shielded room. Imaging was performed on an integrated 16-slice PET/CT scanner, with scanning from the skull base to the mid thigh. Serum blood glucose at the time of the injection was measured 109 mg/dL. CT scanning was performed without oral or intravenous contrast material. FINDINGS: Head and Neck: There is no joleen hypermetabolism in the neck. The visualized portions of the brain are normal in appearance on CT. Chest: Too numerous to count hypermetabolic metastatic pulmonary nodules ranging in size from 2 mm to 4 cm Abdomen and pelvis Liver is irregular in contour. Distended gallbladder Extensive hypermetabolic periaortic pericaval lymphadenopathy, bilateral common iliac lymphadenopathy No bowel obstruction Urinary bladder intact with urinary Ojeda catheter Musculoskeletal: Intensely hypermetabolic L3, L2 T9 T2, manubrium of the sternum, left iliac bone, left humerus, bilateral ribs IMPRESSION: Numerous hypermetabolic metastatic pulmonary nodules Extensive hypermetabolic abdominal and pelvic lymphadenopathy Widespread osseous metastatic disease
== END | disposition home or self-care (01) ==
PROVIDERS: PCP Internal Medicine Hematology & Oncology; Referring Provider Internal Medicine Hematology & Oncology; Visit Provider Internal Medicine Hematology & Oncology
DX: R59.0 Localized enlarged lymph nodes (principal); C79.9 Secondary malignant neoplasm of unspecified site; C78.00 Secondary malignant neoplasm of unspecified lung; C61 Malignant neoplasm of prostate; C78.01 Secondary malignant neoplasm of right lung; C78.02 Secondary malignant neoplasm of left lung
CPT/HCPCS: 78815; 85025; 85610; 85730; A9552

== ENCOUNTER 2024-10-06 17:05 | Emergency (ER) | payer MEDICAID, SELFPAY ==
[2024-10-06 17:36] VITALS: BP 139/76; PULSE 67; RESP 20; TEMP 36.9; O2SAT 98
--- NOTE | 2024-10-06 18:46 | PD.EDMALE ---
ED Male Genitalurinary RME/HPI General Chief complaint: General Adult/Misc Complain Stated complaint: NEEDS HODGE CHANGED, HAS UTI, SENT BY PCP Time Seen by Provider: 10/06/24 17:17 Arrival date/time: 10/06/24 17:05 RME / HPI RME / HPI Narrative: Dr. Stanford?s Main ED Evaluation: 74yo male with a history of prostate CA, BPH, HTN, DM, GERD BIB his daughter presents to the ED for complaints of suprapubic pain and dysuria. Daughter states the patient was seen by his PCP and was informed he had a UTI. He was started on antibiotics. Daughter notes the patient has not had his hodge catheter changed since his last ED visit here. Patient reports associated N/V, reporting he has been unable to keep any food down, and has noticed urine coming out around the catheter. No fever, chills or any other associated symptoms reported. No known allergies. PCP: [facility] Related Data Home Medications ?Medication ?Instructions ?Recorded ?Confirmed insulin glargine subcut PRN for blood sugar 08/03/24 meloxicam 7.5 mg tablet 7.5 mg PO QDAY 08/03/24 08/03/24 metformin 500 mg tablet mg 08/03/24 omeprazole 20 mg capsule,delayed mg 08/03/24 release tramadol 50 mg tablet 50 mg PO QDAY 08/03/24 08/03/24 tramadol 50 mg tablet mg 08/03/24 Allergies Allergy/AdvReac Type Severity Reaction Status Date / Time No Known Allergies Allergy Verified 10/06/24 17:09 Review of Systems Review of Systems Systems Reviewed: All systems reviewed, normal except as documented Past Medical History Past Medical History NEUROLOGIC: Negative Neurological Disorders or Seizures CARDIAC: Positive Cardiac Disorders and Hypertension; Negative Congestive Heart Failure RESPIRATORY: Negative Chronic Obstructive Pulmonary Disease (COPD) or Asthma GASTROINTESTINAL: Positive Gastrointestinal Disorders (pt has pain and starts vomiting-taking nausea medication) and Gastroesophageal Reflux Disease; Negative Gastrointestinal Bleed or Irritable Bowel GENITOURINARY: Positive Genitourinary Disorders (has hodge catheter), Prostate Cancer and Benign Prostatic Hyperplasia; Negative Renal Disease MUSCULOSKELETAL: Negative Musculoskeletal Disorders ENT: Negative Glaucoma ENDOCRINE: Positive Endocrine Disorders and Diabetes Mellitus Type 2; Negative Diabetes Mellitus Type 1 HEMATOLOGIC: Positive Blood Disorders and Anemia; Negative Sickle Cell Disease OTHER HISTORY: Positive Blood Transfusions, Radiation Therapy, Cancer and Prostate Cancer; Negative Autoimmune Disease, Blood Transfusion Reaction, Anesthesia Reactions, Chemotherapy, MRSA or Clostridium Difficile Family History FAMILY HISTORY: Negative Family Cardiac Disorders Surgical History SURGICAL: Negative Ear Surgery, Abdominal Surgery, Joint Replacement, Neurologic Surgery or Vasectomy Social History SMOKING STATUS: Former smoker SECOND HAND EXPOSURE: No ED Exam Narrative Physical exam: GENERAL APPEARANCE: alert and oriented x 4, well-developed, well-nourished, no acute distress VITALS: All vitals were reviewed and the pulse ox is 98% on room air, which is normal according to my interpretation. HEENT: Normocephalic, atraumatic; pupils equal, round, reactive to light; EOMI; mucous membranes pink, moist; oropharynx clear NECK: Supple LUNGS: CTABL; no wheezes, no rales, no rhonchi HEART: Regular rate, regular rhythm; normal S1, S2; no murmurs ABDOMEN: non distended; normal BS; soft, mild suprapubic tenderness, no guarding, no rebound; no masses, no organomegaly, no hernia BACK: no CVA tenderness EXTREMITIES: atraumatic; no edema NEUROLOGIC: awake; alert and oriented x4; cranial nerves II-XII grossly intact; no focal sensory or motor deficits PSYCHIATRIC: appropriate mood and affect SKIN: warm, dry, normal color; no rashes Course Quality Measures none Orders Category Date Time Status Hodge [Urinary Catheter] Care 10/06/24 20:22 Completed Miscellaneous Nursing Order NOW Care 10/06/24 19:04 Completed Urinalysis, C/S if Indicated Stat Lab 10/06/24 19:29 Completed Urine Culture Stat Lab 10/06/24 19:29 Received Lidocaine Jelly 2% Urojet [Xylocaine Jelly 2% Urojet] Med 10/06/24 19:30 Discontinued See Dose Instructions TOP X1 ONE Phenazopyridine HCl [Pyridium] Med 10/06/24 19:16 Discontinued 100 mg PO X1 ONE Vital Signs Vital signs: Vital Signs Temperature 98.4 F 10/06/24 17:36 Pulse Rate 67 10/06/24 17:36 Respiratory Rate 20 10/06/24 17:36 Blood Pressure 139/76 H 10/06/24 17:36 Pulse Oximetry (%) 98 10/06/24 17:36 Oxygen Delivery Method Room Air 10/06/24 17:36 Urogenital - Male MDM Narrative MDM Narrative:: Scribe Attestation: 10/06/24 - Gardenia Mora am scribing for and in the presence of Dr. Stanford. Reviewed PCP ([facility]) paper note from today, which states the patient was given a dose of Rocephin in the clinic and was prescribed Augmentin. Patient did not have his hodge changed at the clinic today due to usually needing a urojet. Patient data External records reviewed:: [facility] previous records (Per chart review, patient was seen here on 06/26/24 for hodge catheter replacement.) and PCP records Clinical information provided by:: patient Social determinants that could affect healthcare access:: none Patient has the following chronic illnesses:: prostate CA, BPH, HTN, DM, GERD How is presenting disease/condition affected by chronic disease/condition?: caused by Evaluation data The following diagnostics were reviewed and interpreted by me:: lab results Lab and/or radiology exams considered but not ordered:: none Interpretation Summary: UA is positive for a UTI. Medications / Prescriptions Medications or Prescriptions considered but not ordered:: none Medication administrations:: Medication Administration History Discontinued Medications Lidocaine HCl (Lidocaine Jelly 2% (Urojet) 10 Ml Tube) 0 ml TOP X1 ONE Stop: 10/06/24 19:31 Last Admin: 10/06/24 20:04 Dose: 10 ml Documented By: EF Phenazopyridine HCl (Phenazopyridine Hcl 100 Mg Tablet) 100 mg PO X1 ONE Stop: 10/06/24 19:17 Last Admin: 10/06/24 20:03 Dose: 100 mg Documented By: EF see above Consultations Consultation(s) initiated? (list below): No Diagnosis Urogenital Male Differential Diagnosis: urinary tract infection Most likely diagnosis given after review of the tests above:: see clinical impression below Admission Indicated Admission indicated?: not indicated Admission Request Was there a request for admission?: No Disposition Plan Disposition Plan: Discharge Discharge Attestation Discharge Attestation: The patient and all family members were given an opportunity to ask questions and understood the discharge instructions. Discharge instructions specifically effects, indications for sooner follow up or return to the emergency department, and the expected course of current diagnosis. Patient condition: Stable Discharge Plan Plan Patient Disposition: HOME (Self Care) Discharge Disposition comment: Stable for discharge Patient condition on transfer: Stable Prescriptions/Referrals Prescriptions/Med Rec: No Action metformin 500 mg tablet Patient Comments: TAKE 1 TABLET BY MOUTH TWICE DAILY tramadol 50 mg tablet omeprazole 20 mg capsule,delayed release(DR/EC) meloxicam 7.5 mg tablet 7.5 mg PO QDAY tramadol 50 mg tablet 50 mg PO QDAY insulin glargine [Basaglar KwikPen U-100 Insulin] subcut PRN (Reason: for blood sugar ) Referrals: Karma Conte FNP [Primary Care Provider] - In 1 week Problem List Clinical Impression: Encounter for Hodge catheter replacement Patient/Caregiver Discharge Instructions Discharge Activity: activity as tolerated Education Materials: Indwelling Urinary Catheter Dc, ED Hodge Catheter, Care Additional Instructions: Please return to the emergency department if you have any worsening or any further medical problems and we will help you. Otherwise you should follow-up with your primary care doctor within the next several days Print Language: [place] Stand Alone Forms: Antonette Award Info., Patient Portal Info Letter
[2024-10-06 19:48] LABS: Collection Type, Urine Catheter; Squamous Epithelial Cell,Urine 0 /hpf (0-5)
[2024-10-06] MEDS: PHENAZOPYRIDINE HCL 100 MG TABLET PO (20:03)
[2024-10-06] MEDS: LIDOCAINE JELLY 2% (Urojet) 10 ML TUBE TOP (20:04)
[2024-10-06 20:26] LABS: Bacteria,Urine 2+; Bilirubin,Urine Negative (Negative); Blood,Urine 3+ (Negative); Color,Urine Yellow (Lt Yel-Yel); Glucose, Urine 4+ (Negative); Ketones,Urine Negative (Negative); Leukocyte Esterase,Urine Positive (Negative); Nitrite,Urine Negative (Negative); Protein,Urine 1+ (Neg - Trace); RBC,Urine 121 /hpf (0-3); Specific Gravity,Urine 1.018 (1.001-1.035); Urobilinogen,Urine Negative mg/dL (0.0-1.0); WBC,Urine 947 /hpf (0-5)
[2024-10-06 20:28] LABS: Clarity,Urine Turbid (Clear/Hazy); Culture Indicated,Urine Yes
[2024-10-06 21:13] VITALS: BP 147/76; PULSE 60; RESP 15; O2SAT 99
== END 2024-10-06 21:17 | disposition home or self-care (01) ==
PROVIDERS: Emergency Provider Emergency Medicine; PCP Nurse Practitioner Family
DX: Z46.6 Encounter for fitting and adjustment of urinary device (principal); N40.0 Benign prostatic hyperplasia without lower urinary tract symptoms; I10 Essential (primary) hypertension; E11.9 Type 2 diabetes mellitus without complications; K21.9 Gastro-esophageal reflux disease without esophagitis; Z85.46 Personal history of malignant neoplasm of prostate
CPT/HCPCS: 51702; 81001; 87077; 87086; 87186; 99283; A9270

== ENCOUNTER 2025-03-15 16:58 | Emergency (ER) | payer MEDICAID, SELFPAY ==
[2025-03-15 17:25] VITALS: BP 113/71; PULSE 102; RESP 18; TEMP 37; O2SAT 99; BMI 30.4
--- NOTE | 2025-03-15 17:35 | PD.EDRME ---
Rapid Medical Screening Exam RME Arrival date/time: 03/15/25 16:58 Chief Complaint: General Adult/Misc Complain Time Seen by Provider: 03/15/25 17:25 Vital signs: Vital Signs Temperature 98.6 F 03/15/25 17:25 Pulse Rate 102 H 03/15/25 17:25 Respiratory Rate 18 03/15/25 17:25 Blood Pressure 113/71 03/15/25 17:25 Pulse Oximetry (%) 99 03/15/25 17:25 Oxygen Delivery Method Room Air 03/15/25 17:25 Vital signs reviewed by provider: Yes RME Narrative: 75-year-old male with past medical history of prostate cancer he goes to the cancer center, had a remote partial prostatectomy which was unsuccessful of an unknown surgeon, who is on hormone therapy but not chemo or radiation presents to the ER after home health nurse attempted to place a Ojeda catheter at 1 PM however patient now has bladder fullness and thinks that it was not put in the correct position as he is not draining any fluid. Denies any fever or vomit. I briefly performed a screening evaluation to initiate work-up and expedite care. Complete history, physical exam, and plan of care is deferred to the provider in the main ED.
[2025-03-15] MEDS: LIDOCAINE JELLY 2% (Urojet) 10 ML TUBE TOP (18:29)
--- NOTE | 2025-03-15 18:43 | PD.EDADULT ---
ED General RME/HPI General Chief complaint: General Adult/Misc Complain Stated complaint: NO DRAINAGE FROM HODGE IN 4 HRS Time Seen by Provider: 03/15/25 17:25 Arrival date/time: 03/15/25 16:58 CC: Hodge that was replaced by home health was not draining the patient had significant pain with distended abdomen. Family members bring the patient in with recurrent pain patient has a history of prostate cancer his current under treatment. Patient denies fever chills shortness of breath or difficulty breathing no other complaints. Localized abdominal pain is 3-4 out of 10 scale. RME / HPI RME / HPI narrative: 75-year-old male with past medical history of prostate cancer he goes to the cancer center, had a remote partial prostatectomy which was unsuccessful of an unknown surgeon, who is on hormone therapy but not chemo or radiation presents to the ER after home health nurse attempted to place a Hodge catheter at 1 PM however patient now has bladder fullness and thinks that it was not put in the correct position as he is not draining any fluid. Denies any fever or vomit. I briefly performed a screening evaluation to initiate work-up and expedite care. Complete history, physical exam, and plan of care is deferred to the provider in the main ED. Related Data Home Medications ?Medication ?Instructions ?Recorded ?Confirmed insulin glargine subcut PRN for blood sugar 08/03/24 meloxicam 7.5 mg tablet 7.5 mg PO QDAY 08/03/24 08/03/24 metformin 500 mg tablet mg 08/03/24 omeprazole 20 mg capsule,delayed mg 08/03/24 release tramadol 50 mg tablet 50 mg PO QDAY 08/03/24 08/03/24 tramadol 50 mg tablet mg 08/03/24 Previous Rx's ?Medication ?Instructions ?Recorded nitrofurantoin 100 mg PO BID #14 caps 03/15/25 monohydrate/macrocrystals 100 mg capsule (Macrobid) ondansetron 4 mg disintegrating 4 mg PO Q8H #10 tabs 03/15/25 tablet Allergies Allergy/AdvReac Type Severity Reaction Status Date / Time No Known Allergies Allergy Verified 03/15/25 17:02 Review of Systems Review of Systems Narrative Review of Systems: GEN: No fever, no chills, no weight loss EYES: No discharge, no visual changes, no pain HEENT: No ear pain, no congestion, no sore throat PULM: No shortness of breath, no cough, no congestion CV: No chest pain, no dyspnea on exertion, no palpitations GI: No nausea, no vomiting, no diarrhea, no pain, no constipation : No frequency, no urgency, no dysuria MUSC/SKEL: No joint pain, no back pain SKIN: No rash PSYCH: No hallucinations, no depression HEME/LYMPH: No easy bleeding or bruising tendencies NEURO: No weakness, no headache Past Medical History Past Medical History NEUROLOGIC: Negative Neurological Disorders or Seizures CARDIAC: Positive Cardiac Disorders and Hypertension; Negative Congestive Heart Failure RESPIRATORY: Negative Chronic Obstructive Pulmonary Disease (COPD) or Asthma GASTROINTESTINAL: Positive Gastrointestinal Disorders and Gastroesophageal Reflux Disease; Negative Gastrointestinal Bleed or Irritable Bowel GENITOURINARY: Positive Genitourinary Disorders, Prostate Cancer and Benign Prostatic Hyperplasia; Negative Renal Disease MUSCULOSKELETAL: Negative Musculoskeletal Disorders ENT: Negative Glaucoma ENDOCRINE: Positive Endocrine Disorders and Diabetes Mellitus Type 2; Negative Diabetes Mellitus Type 1 HEMATOLOGIC: Positive Blood Disorders and Anemia; Negative Sickle Cell Disease OTHER HISTORY: Positive Blood Transfusions, Radiation Therapy, Cancer and Prostate Cancer; Negative Autoimmune Disease, Blood Transfusion Reaction, Anesthesia Reactions, Chemotherapy, MRSA or Clostridium Difficile Family History FAMILY HISTORY: Negative Family Cardiac Disorders Surgical History SURGICAL: Negative Ear Surgery, Abdominal Surgery, Joint Replacement, Neurologic Surgery or Vasectomy Social History SMOKING STATUS: Never smoker SECOND HAND EXPOSURE: No ED Exam Narrative Physical exam: [General: Obese not in any acute distress Head normocephalic HEENT: Within acceptable limits Neck is supple nontender Chest equal chest rise nontender to palpation Respiratory: Clear to auscultation no wheezes crackles or rubs CV: Rate rhythm is regular no murmurs rubs or clicks Abdomen is distended secondary to full bladder, nontender no masses positive bowel sounds all 4 quadrants Back: No CVA tenderness no spinous process tenderness from cervical spine thoracic and lumbar spine Skin: Intact no petechiae rash induration ulceration or crepitus Extremities: Moving all extremity against resistance cap refill less than 2 seconds neurosensory intact Neuro: Awake alert oriented x3 Glascow coma 15 no focal deficits] Course Course Course Narrative: Upon discharge at 2014, the patient abruptly had a wave of nausea with vomiting. He became tachycardic. After 4 mg of Zofran these all resolved and will continue the discharge home but this time we will add Zofran to his regimen Quality Measures none Orders Category Date Time Status Hodge to Leg Bag Routine Care 03/15/25 17:40 Ordered Urinalysis Stat Lab 03/15/25 18:45 Completed Lidocaine Jelly 2% Urojet [Xylocaine Jelly 2% Urojet] Med 03/15/25 17:54 Discontinued See Dose Instructions TOP X1 ONE Ondansetron Odt [Zofran Odt] Med 03/15/25 20:11 Discontinued 4 mg PO X1 ONE Vital Signs Vital signs: Vital Signs Temperature 98.6 F 03/15/25 17:25 Pulse Rate 102 H 03/15/25 17:25 Respiratory Rate 18 03/15/25 17:25 Blood Pressure 113/71 03/15/25 17:25 Pulse Oximetry (%) 99 03/15/25 17:25 Oxygen Delivery Method Room Air 03/15/25 17:25 PROCEDURES: Procedure Comment Old Hodge removed without complication new Hodge, #18 advanced without complication bloody urine immediately began to flow approximately 500 cc drained with significant relief to the patient. Discharge Plan Plan Patient Disposition: HOME (Self Care) Patient condition on transfer: Stable Prescriptions/Referrals Prescriptions/Med Rec: New nitrofurantoin monohyd/m-cryst [Macrobid] 100 mg capsule 100 mg PO BID Qty: 14 0RF Rx Instructions: must administer with a meal/food ondansetron 4 mg tablet,disintegrating 4 mg PO Q8H Qty: 10 0RF No Action metformin 500 mg tablet Patient Comments: TAKE 1 TABLET BY MOUTH TWICE DAILY tramadol 50 mg tablet omeprazole 20 mg capsule,delayed release(DR/EC) meloxicam 7.5 mg tablet 7.5 mg PO QDAY tramadol 50 mg tablet 50 mg PO QDAY insulin glargine [Basaglar KwikPen U-100 Insulin] subcut PRN (Reason: for blood sugar ) Problem List Clinical Impression: Retention of urine, Encounter for Hodge catheter replacement, UTI (urinary tract infection) Patient/Caregiver Discharge Instructions Education Materials: ED Hodge Catheter, Care, ED Bladder Infection, Male (Adult) Print Language: Micronesian Stand Alone Forms: Antonette Award Info., Work/School Release, Patient Portal Info Letter PA/EMERGENCY MANAGEMENT CONSULTANT Supervising Physician PA/EMERGENCY MANAGEMENT CONSULTANT Supervising Physician: Shane Aquino ENP MDM Clinical Information Provided by: patient Medical Records reviewed [facility] Meds/Rx considered, not ordered None Labs/Rad/Tests considered, not ordered None Chronic Illness/Social Conditions Explain: Hodge catheter prostate CA EKG EKG not done Labs Labs: interpreted by wa Lab(s) Interpretation(s): Urine is turbid brown 4+ glucose 3+ blood RBCs at 5619 WBCs at 901 leukocyte esterase positive nitrate negative. 1+ bacteria Medication Administration(s) Medication Administration History Discontinued Medications Lidocaine HCl (Lidocaine Jelly 2% (Urojet) 10 Ml Tube) 0 ml TOP X1 ONE Stop: 03/15/25 17:55 Last Admin: 03/15/25 18:29 Dose: 10 ml Documented By: ANNI Ondansetron HCl (Ondansetron Odt 4 Mg Tabrap) 4 mg PO X1 ONE; Protocol Stop: 03/15/25 20:12 Last Admin: 03/15/25 20:24 Dose: 4 mg Documented By: DELFIN
[2025-03-15 19:18] LABS: Collection Type, Urine Voided; Squamous Epithelial Cell,Urine 0 /hpf (0-5)
[2025-03-15 19:33] VITALS: BP 105/72; PULSE 94; RESP 18; TEMP 36.9; O2SAT 96
[2025-03-15 19:36] LABS: Bacteria,Urine 1+; Bilirubin,Urine Negative (Negative); Blood,Urine 3+ (Negative); Color,Urine Brown (Lt Yel-Yel); Glucose, Urine 4+ (Negative); Ketones,Urine Negative (Negative); Leukocyte Esterase,Urine Positive (Negative); Nitrite,Urine Negative (Negative); PH,Urine 6.5 (5.0-7.0); Protein,Urine 1+ (Neg - Trace); RBC,Urine 5619 /hpf (0-3); Specific Gravity,Urine 1.009 (1.001-1.035); Urobilinogen,Urine Negative mg/dL (0.0-1.0); WBC,Urine 901 /hpf (0-5)
[2025-03-15 19:38] LABS: Clarity,Urine Turbid (Clear/Hazy)
[2025-03-15 19:59] VITALS: BP 157/79; PULSE 109; RESP 16; O2SAT 94
[2025-03-15 20:17] VITALS: TEMP 36.2
[2025-03-15] MEDS: ONDANSETRON ODT 4 MG TABRAP PO (20:24)
[2025-03-15 20:47] VITALS: BP 148/98; PULSE 102; RESP 18; TEMP 36.2; O2SAT 96
== END 2025-03-15 20:48 | disposition home or self-care (01) ==
LOC: SERX 18:54
PROVIDERS: Physician Assistant; Emergency Provider Emergency Medicine
DX: Z46.6 Encounter for fitting and adjustment of urinary device (principal); N39.0 Urinary tract infection, site not specified; R33.9 Retention of urine, unspecified
CPT/HCPCS: 51702; 81001; 99284; A4314; Q0162

== ENCOUNTER 2025-03-21 00:43 | Emergency (ER) | payer MEDICAID, SELFPAY ==
[2025-03-21 00:45] VITALS: BMI 30.4
[2025-03-21 00:52] VITALS: BP 130/77; PULSE 100; RESP 18; TEMP 36.5; O2SAT 99
--- NOTE | 2025-03-21 01:09 | EDNOTE_ITS ---
ED Male Genitalurinary RME/HPI General Chief complaint: General Adult/Misc Complain Stated complaint: HODGE CATH MALFUNCTION Time Seen by Provider: 03/21/25 01:19 Arrival date/time: 03/21/25 00:43 RME / HPI RME / HPI Narrative: See MDM for Dr. Bella's HPI documentation. Related Data Home Medications ?Medication ?Instructions ?Recorded ?Confirmed insulin glargine subcut PRN for blood sugar 0 08/03/24 meloxicam 7.5 mg tablet 7.5 mg PO QDAY 08/03/24 03/0 09/24 metformin 500 mg tablet mg 08/03/24 omeprazole 20 mg capsule,delayed mg 08/03/24 release tramadol 50 mg tablet 50 mg PO QDAY 08/03/2408/03 tramadol 50 mg tablet mg 08/03/24 Previous Rx's ?Medication ?Instructions ?Recorded nitrofurantoin 100 mg PO BID #14 caps 03/15 monohydrate/macrocrystals 100 mg capsule (Macrobid) ondansetron 4 mg disintegrating 4 mg PO Q8H #10 tabs 1 tablet cefdinir 300 mg capsule 300 mg PO BID #14 caps 03/21 Allergies Allergy/AdvReac Type Severity Reaction Status Date / Time No Known Allergies Allergy Verified 03/21/25 00:48 Review of Systems Review of Systems Systems Reviewed: All systems reviewed, normal except as documented Past Medical History Past Medical History NEUROLOGIC: Negative Neurological Disorders or Seizures CARDIAC: Positive Cardiac Disorders and Hypertension; Negative Congestive Heart Failure RESPIRATORY: Negative Chronic Obstructive Pulmonary Disease (COPD) or Asthma GASTROINTESTINAL: Positive Gastrointestinal Disorders and Gastroesophageal Reflux Disease; Negative Gastrointestinal Bleed or Irritable Bowel GENITOURINARY: Positive Genitourinary Disorders, Prostate Cancer and Benign Prostatic Hyperplasia; Negative Renal Disease MUSCULOSKELETAL: Negative Musculoskeletal Disorders ENT: Negative Glaucoma ENDOCRINE: Positive Endocrine Disorders and Diabetes Mellitus Type 2; Negative Diabetes Mellitus Type 1 HEMATOLOGIC: Positive Blood Disorders and Anemia; Negative Sickle Cell Disease OTHER HISTORY: Positive Blood Transfusions, Radiation Therapy, Cancer and Prostate Cancer; Negative Autoimmune Disease, Blood Transfusion Reaction, Anesthesia Reactions, Chemotherapy, MRSA or Clostridium Difficile Family History FAMILY HISTORY: Negative Family Cardiac Disorders Surgical History SURGICAL: Negative Ear Surgery, Abdominal Surgery, Joint Replacement, Neurologic Surgery or Vasectomy Social History SMOKING STATUS: Never smoker SECOND HAND EXPOSURE: No ED Exam Narrative Physical exam: See MDM for Dr. Bella's physical exam documentation. Course Quality Measures none Orders Category Date Time Status Continuous Bladder Irrigation QSHIFT Care 03/21/25 01:36 Completed Hodge to [place] Routine Care 03/21/25 01:23 Ordered Glucose [Bedside Blood Glucose] NOW Care 03/21/25 04:46 Completed Miscellaneous Nursing Order NOW Care 03/21/25 01:36 Completed Saline [Insert IV] NOW Care 03/21/25 01:[address] chest abdomen pelvis wo Stat Exams 03/21/25 01:24 Taken XR chest 1V portable Stat Exams 03/21/25 01:25 Taken Amylase Stat Lab 03/21/25 01:36 Completed BMP [Basic Metabolic Panel] Stat Lab 03/21/25 04:53 Completed BNP [B-Type Natriuretic Peptide] Stat Lab 03/21/25 01:36 Completed Beta Hydroxybutyrate Stat Lab 03/21/25 01:36 Completed Bilirubin,Direct Stat Lab 03/21/25 01:36 Completed Blood Culture (Lab) Stat Lab 03/21/25 01:51 Received CBC Stat Lab 03/21/25 01:36 Completed CMP [Comprehensive Metabolic Panel] Stat Lab 03/21/25 01:36 Completed CRP [C-Reactive Protein] Stat Lab 03/21/25 01:36 Completed ESR [Sed Rate (ESR)] Stat Lab 03/21/25 01:36 Completed Hemoglobin A1C [Glycohemoglobin w (eAG)] Stat Lab 03/21/25 01:36 Completed Lactate (Lactic Acid) Stat Lab 03/21/25 01:36 Completed Lactic Acid, 3 HR Stat Lab 03/21/25 04:53 Completed Lipase Stat Lab 03/21/25 01:36 Completed Magnesium Stat Lab 03/21/25 01:36 Completed PT [Prothrombin Time with INR] Stat Lab 03/21/25 01:36 Completed PTT [Partial Thromboplastin Time] Stat Lab 03/21/25 01:36 Completed Procalcitonin Stat Lab 03/21/25 01:36 Completed TSH [Thyroid Stimulating Hormone] Stat Lab 03/21/25 01:36 Completed UA, C/S IF [Urinalysis, C/S if Indicated] Stat Lab 03/21/25 03:33 Completed VBG [Venous Blood Gas] Stat Lab 03/21/25 01:36 Completed Insulin Regular Med 03/21/25 02:36 Discontinued 6 unit IV X1 ONE Morphine* Inj Med 03/21/25 01:24 Discontinued 4 mg IV X1 ONE Ondansetron Inj [Zofran Inj] Med 03/21/25 01:24 Discontinued 4 mg IVP X1 ONE Sodium Chloride 0.9% 1000 ml [Ns] 1,000 ml Med 03/21/25 01:24 Discontinued IV 999 mls/hr Sodium Chloride 0.9% 1000 ml [Ns] 1,000 ml Med 03/21/25 02:37 Discontinued IV 999 mls/hr cefTRIAXone/D5w 1gm IV premix [Rocephin/D5w 1gm IV Med 03/21/25 04:46 Discontinued premix] 1 g in 50 ml IV X1 Vital Signs Vital signs: Vital Signs Temperature 97.7 F 03/21/25 00:52 Pulse Rate 100 03/21/25 00:52 Respiratory Rate 18 03/21/25 00:52 Blood Pressure 130/77 03/21/25 00:52 Pulse Oximetry (%) 99 03/21/25 00:52 Oxygen Delivery Method Room Air 03/21/25 00:52 Urogenital - Male MDM Narrative MDM Narrative:: This section includes all my notes and documentations, including HPI, PE, and ED course. Dwight Bella MD HPI: 75yo male with BPH, prostate cancer, indwelling Hodge catheter here with urinary retention and blood in the urine all evening and night. Reports worsening abdominal tenderness. No fever. No nausea or vomiting. No other complaints. ROS: All negative except as documented in HPI. Physical Exam: General: Alert and oriented. Appears uncomfortable. Eyes: Conjunctivae and lids clear. ENT: No nasal congestion. Neck: Supple. Heart: RRR. Lungs: No respiratory distress. Good air movement. No rhonchi, wheezing, rales. Abdomen: Soft with suprapubic tenderness. Normal bowel sounds. No distension. No rebound or guarding. Back: No CVA tenderness. Skin: Warm and dry. Neuro: Alert and oriented X 3. I reviewed all diagnostic test results. My interpretation of the chest x-ray is unremarkable. My review of the CT chest abdomen pelvis report is acute cystitis. Blood/urine tests remarkable for WBC 13.8, ESR 74, Creatinine 2.2, Glucose 457, Lactic Acid 32.6, Procalcitonin 1.27. At this point, diagnoses include: Urinary retention Hematuria Treatment here included: IV fluid (2 L) Regular insulin 6 units IV Morphine 4 mg IV Zofran 4 mg IV Rocephin 1 g IV CBI via 3-Way Hodge Significant improvement noted. Recommended admission here or transfer to another facility for further care. Patient requested discharge. Discussed potential risks, including worsening and sudden . Patient understood the risks and is willing to take the risks. We couldn't change his mind. Based on my best medical judgment, made decision no further evaluation or treatment indicated at this time. Patient understands and agrees to the discharge instructions customized and printed, see below. Discharge Instructions from Dr. Bella printed for you: 1. You were treated today for urinary retention and blood in your urine. 2. Since you declined to be hospitalized or transferred to another hospital, you are being discharged home as requested. 3. For good hydration and to prevent more blood in the urine, increase oral fluid and maintain clear urine. If dark or yellow or bloody, increase oral fluid. 4. Take cefdinir as prescribed for possible urine infection, until final urine culture results. 5. See a private doctor on 03/22/2025 for recheck. Ask to review all test results and official radiology reports, to make sure you receive all necessary follow-ups and monitoring. If you don't have urologist already, ask for help to see urologist soon. 6. Seek immediate medical care with worsening or with any concerns. Dwight Bella MD Patient data External records reviewed:: [facility] previous records (Per chart review, patient was seen here on 03/15/25 for hodge catheter replacement.) Clinical information provided by:: patient Social determinants that could affect healthcare access:: none Patient has the following chronic illnesses:: DM, HTN, BPH, prostate CA How is presenting disease/condition affected by chronic disease/condition?: caused by Evaluation data The following diagnostics were reviewed and interpreted by me:: lab results and radiology exam(s) Lab and/or radiology exams considered but not ordered:: none Interpretation Summary: I reviewed all diagnostic test results. My interpretation of the chest x-ray is unremarkable. My review of the CT chest abdomen pelvis report is acute cystitis. Blood/urine tests remarkable for WBC 13.8, ESR 74, Creatinine 2.2, Glucose 457, Lactic Acid 32.6, Procalcitonin 1.27. Medications / Prescriptions Medications or Prescriptions considered but not ordered:: none Medication administrations:: Medication Administration History Discontinued Medications Sodium Chloride (Ns) 1,000 mls @ 999 mls/hr IV .Q1H1M ONE Stop: 03/21/25 02:24 Last Infusion: 03/21/25 04:02 Dose: Infused Documented By: Admin: 03/21/25 02:27 Dose: 999 mls/hr Documented By: IFEANYI Sodium Chloride (Ns) 1,000 mls @ 999 mls/hr IV .Q1H1M ONE Stop: 03/21/25 03:37 Last Admin: 03/21/25 04:00 Dose: 999 mls/hr Documented By: IFEANYI Ceftriaxone Sodium/Dextrose (Rocephin/D5w 1gm Iv Premix) 1 g in 50 mls @ 100 mls/hr IV X1 ONE Stop: 03/21/25 05:15 Last Admin: 03/21/25 05:00 Dose: 100 mls/hr Documented By: IFEANYI Insulin Human Regular (Insulin Hum Regular 1 Unit/0.01 Ml (Per Unit)) 6 unit IV X1 ONE Stop: 03/21/25 02:37 Last Admin: 03/21/25 03:59 Dose: 6 unit Documented By: IFEANYI Co-signed By: SARAH Morphine Sulfate (Morphine Sulf Inj 4 Mg/Ml Vial) 4 mg IV X1 ONE Stop: 03/21/25 01:25 Last Admin: 03/21/25 02:27 Dose: 4 mg Documented By: IFEANYI Ondansetron HCl (Ondansetron Inj 2 Mg/Ml Inj 2 Ml) 4 mg IVP X1 ONE; Protocol Stop: 03/21/25 01:25 Last Admin: 03/21/25 02:27 Dose: 4 mg Documented By: IFEANYI Treatment here included: IV fluid (2 L) Regular insulin 6 units IV Morphine 4 mg IV Zofran 4 mg IV Rocephin 1 g IV CBI via 3-Way Hodge Consultations Consultation(s) initiated? (list below): No Diagnosis Urogenital Male Differential Diagnosis: urinary tract infection, acute retention of urine and other (Obstructive kidney stone, pyelonephritis, sepsis) Most likely diagnosis given after review of the tests above:: Urinary retention Hematuria Admission Indicated Admission indicated?: not indicated Explain why admission is indicated or not indicated:: Recommended admission here or transfer to another facility for further care. Patient requested discharge. Discussed potential risks, including worsening and sudden . Patient understood the risks and is willing to take the risks. We couldn't change his mind. Admission Request Was there a request for admission?: No Disposition Plan Disposition Plan: Discharge Discharge Attestation Discharge Attestation: The patient and all family members were given an opportunity to ask questions and understood the discharge instructions. Discharge instructions specifically effects, indications for sooner follow up or return to the emergency department, and the expected course of current diagnosis. Patient condition: Stable Discharge Plan Plan Patient Disposition: HOME (Self Care) Prescriptions/Referrals Prescriptions/Med Rec: New cefdinir 300 mg capsule 300 mg PO BID Qty: 14 0RF No Action metformin 500 mg tablet Patient Comments: TAKE 1 TABLET BY MOUTH TWICE DAILY tramadol 50 mg tablet omeprazole 20 mg capsule,delayed release(DR/EC) meloxicam 7.5 mg tablet 7.5 mg PO QDAY tramadol 50 mg tablet 50 mg PO QDAY insulin glargine [Basaglar KwikPen U-100 Insulin] subcut PRN (Reason: for blood sugar ) nitrofurantoin monohyd/m-cryst [Macrobid] 100 mg capsule 100 mg PO BID Qty: 14 0RF Rx Instructions: must administer with a meal/food ondansetron 4 mg tablet,disintegrating 4 mg PO Q8H Qty: 10 0RF Referrals: Karma Conte FNP [Primary Care Provider] - In 1 week Problem List Clinical Impression: Urinary retention, Hematuria, Cystitis Patient/Caregiver Discharge Instructions Discharge Activity: activity as tolerated Education Materials: ED Hodge Catheter, Care, ED Hematuria Additional Instructions: Discharge Instructions from Dr. Bella printed for you: 1. You were treated today for urinary retention and blood in your urine. 2. Since you declined to be hospitalized or transferred to another hospital, you are being discharged home as requested. 3. For good hydration and to prevent more blood in the urine, increase oral fluid and maintain clear urine. If dark or yellow or bloody, increase oral fluid. 4. Take cefdinir as prescribed for possible urine infection, until final urine culture results. 5. See a private doctor on 03/22/2025 for recheck. Ask to review all test results and official radiology reports, to make sure you receive all necessary follow-ups and monitoring. If you don't have urologist already, ask for help to see urologist soon. 6. Seek immediate medical care with worsening or with any concerns. Instrucciones de shanika del Dr. Bella, impresas para usted: 1. Hoy recibi? tratamiento por retenci?n urinaria y shira en la orina. 2. Dado que rechaz? ser hospitalizado o transferido a otro hospital, se le da de shanika a francisco domicilio seg?n lo solicitado. 3. Para rosamaria buena hidrataci?n y evitar la presencia de shira en la orina, aumente la ingesta de l?quidos y mantenga la orina radha. Si la orina es oscura, amarilla o con shira, aumente la ingesta de l?quidos. 4. Kipp cefdinir seg?n lo prescrito para rosamaria posible infecci?n urinaria, hasta obtener los resultados finales del urocultivo. 5. Consulte con un m?dico particular el 22/03/2025 para rosamaria nueva revisi?n. Solicite la revisi?n de todos los resultados de las pruebas y los informes radiol?gicos oficiales para asegurarse de recibir todos los seguimientos y la monitorizaci?n necesarios. Si a?n no tiene un ur?logo, solicite ayuda para consultarlo pronto. 6. Busque atenci?n m?dica inmediata si presenta empeoramiento o si tiene alguna inquietud. Print Language: Citizen Of [place] Stand Alone Forms: Antonette Award Info., Patient Portal Info Letter
--- NOTE | 2025-03-21 01:24 | XR_ITS ---
Examination: CT chest, without intravenous contrast. CT abdomen, without intravenous contrast. CT pelvis, without intravenous contrast. 2-D sagittal and coronal reconstructions. 3-D reconstructions. Date and time of exam: March 21, 2025, 0241 hours, comparison PET/CT scan August 05, 2024, CT chest August 03, 2024 Indications: History of metastatic pulmonary nodules, shortness of breath hematuria abdominal pain today CTDI vol (mgy) 10.1 DLP (MGycm) 799 Technique: Multiple CT images, 3.0 mm slice thickness, obtained chest, abdomen, pelvis, with the high-resolution 64 slice scanner.. Sagittal and coronal 2-D reconstructions are obtained. 3-D reconstructions Low dose protocols were performed. One or more of the following dose reduction techniques were used; automated exposure control, adjustment of the mA and/or KV according to patient size, use of iterative reconstruction technique. Findings: No thoracic aortic aneurysmal dilatation Pulmonary artery segments are not enlarged. No paratracheal or tracheobronchial or bronchopulmonary adenopathy Numerous subcentimeter pulmonary nodules which show marked treatment response compared to August 03, 2024, decreased in size and number of nodules No interval pneumonia or pulmonary edema Liver is irregular in contour Gallbladder is distended No pancreatic mass Mild hydronephrosis Marked decrease in abdominal and pelvic lymphadenopathy compared to PET/CT scan August 05, 2024 Abundant stool in the colon No obstruction Severe thickening of the urinary bladder wall with air density in the urinary bladder wall and Ojeda catheter Marked inflammatory change around the bladder Osteoblastic lesions at T2, T9, L2, spinous process L4, left iliac bone, bilateral ribs IMPRESSION: Marked treatment response compared to PET/CT scan August 15, [address] chest August 03, 2024 Metastatic pulmonary nodules remain No renal or ureteral calculi, no hydronephrosis Severe thickening of the urinary bladder wall, air in the urinary bladder and perhaps urinary bladder wall as well as marked pericystic inflammatory change consistent with severe cystitis Osseous metastatic disease again depicted
--- NOTE | 2025-03-21 01:25 | XR_ITS ---
EXAMINATION: AP chest single view TECHNIQUE: AP upright portable chest single view Date and time: March 21, 2025, 0.51 hours, comparison August 03, 2024 INDICATIONS: Shortness of breath today FINDINGS: No significant cardiac enlargement Pulmonary nodules noted on the August 03, 2024 exam are no longer identified Prominent osteopenia No pneumonia IMPRESSION: Pulmonary nodules noted on the August 03, 2024 exam are no longer identified.
[2025-03-21 01:59] LABS: Base Excess, Venous -4 (-3-3); Lactate (Lactic Acid) 2.6 mMol/L (0.4-2.0); O2 Saturation, Venous 83 % (96-97); PCO2, Venous 37 mmHg (36-56); PO2, Venous 45 mmHg (15-58); pH, Venous 7.36 (7.33-7.66)
[2025-03-21 02:03] VITALS: BP 123/62; PULSE 78; RESP 15; TEMP 36.6; O2SAT 96
[2025-03-21 02:03] LABS: Basophils # (Auto) 0.1 Thou/mm3 (0.0-0.2); Basophils % (Auto) 1 % (0-2.5); Beta Hydroxybutyrate 0.2 mmol/L (<0.6); Eosinophils # (Auto) 0.4 Thou/mm3 (0.0-0.5); Eosinophils % (Auto) 3 % (0-10); Hematocrit 27.8 % (41.0-53.0); Hemoglobin 9.4 g/dL (13.5-16.0); Immature Granulocytes Auto 0.31 Thou/mm3 (0.00-0.00); Lymphocytes # (Auto) 2.6 Thou/mm3 (1.0-4.8); Lymphocytes % (Auto) 19 % (10-50); Mean Corpuscular HGB Conc 33.8 g/dl (31.0-37.0); Mean Corpuscular Hemoglobin 28.1 pg (25.0-35.0); Mean Corpuscular Volume 83 fL (80-100); Monocytes # (Auto) 1.0 Thou/mm3 (0.0-0.8); Monocytes % (Auto) 8 % (0-12); Neutrophils # (Auto) 9.4 Thou/mm3 (1.8-7.7); Neutrophils % (Auto) 68 % (37-80); Nucleated Red Blood Cell # 0.00 Thou/mm3 (0.00-0.00); Nucleated Red Blood Cell % 0 /100 WBC (0); Platelet Count 344 Thou/mm3 (140-440); RDW Standard Deviation 38.1 fL (35.1-43.9); Red Blood Count 3.34 Miln/mm3 (4.50-5.90); White Blood Count 13.8 Thou/mm3 (3.8-10.6)
[2025-03-21 02:12] LABS: Glucose Estimated Average 289 mg/dL (80-131); Hemoglobin A1C 11.7 % Hgb (4.8-6.0); Sed Rate (ESR) 74 mm/hr (0-20)
[2025-03-21 02:16] LABS: INR 1.0 (0.9-1.3); Partial Thromboplastin Time 29.1 Seconds (22.0-36.0); Prothrombin Time 10.7 Seconds (9.0-12.2)
[2025-03-21 02:27] LABS: Alanine Aminotransferase 27 U/L (10-49); Albumin, Serum 4.4 gm/dL (3.4-4.8); Albumin/Globulin Ratio 1.4 (1.2-2.2); Alkaline Phosphatase 129 U/L (46-116); Amylase 98 U/L (30-118); Anion Gap 14 (7-16); Aspartate Amino Transferase 24 U/L (0-34); BUN/Creatinine Ratio 17 Ratio (12-20); Bilirubin,Direct 0.1 mg/dL (0.0-0.3); Bilirubin,Total 0.3 mg/dL (0.3-1.2); Blood Urea Nitrogen 38 mg/dL (9-23); C-Reactive Protein 0.6 mg/dL (0.0-0.9); Calcium 9.2 mg/dL (8.3-10.6); Calcium (Corrected) 9.2 mg/dL (8.5-10.1); Carbon Dioxide 20.4 mMol/L (20.0-31.0); Chloride 99 mMol/L (98-107); Creatinine (Component) 2.2 mg/dL (0.6-1.3); Estimated Creatinine Clearance 31.7 mL/min (>60); Globulin 3.2 gm/dL (2.3-3.5); Lipase 67 U/L (12-53); Magnesium 2.2 mg/dL (1.6-2.6); Osmolality,Calculated 295 (275-295); Potassium 4.2 mMol/L (3.4-5.1); Procalcitonin 1.27 ng/ml (0.0-0.49); Sodium 133 mMol/L (136-145); Thyroid Stimulating Hormone 3.29 uIU/mL (0.55-4.78); Total Protein 7.6 gm/dL (5.7-8.2); eGFR 30 See Note
[2025-03-21] MEDS: SODIUM CHLORIDE 0.9% 1000 ML 1,000 ML 999 ML IV ×2 (02:27→04:00)
[2025-03-21] MEDS: ONDANSETRON INJ 2 MG/ML INJ 2 ML 4 MG IVP (02:27)
[2025-03-21] MEDS: MORPHINE SULF INJ 4 MG/ML VIAL IV (02:27)
[2025-03-21 02:28] LABS: B-Type Natriuretic Peptide 39 pg/mL (0-100)
[2025-03-21 02:29] LABS: Glucose 457 mg/dL (74-106)
--- NOTE | 2025-03-21 03:32 | PRELIM_ITS ---
CT scan of the chest, abdomen and pelvis without intravenous contrast (axial sections with sagittal and coronal reformats) March 21, 2025 0241 hours Clinical History: SOB HEMATURIA ABD PAIN Comparison: None available at the time of this report. Findings: A few indeterminate subcentimeter lung nodules. Bilateral apical lung scarring. There is no pleural effusion or pneumothorax. The aorta is within normal limits for on this noncontrast study. No evidence of mediastinal mass or lymphadenopathy. There is no pericardial effusion. The gallbladder, spleen, pancreas, and adrenals are unremarkable on this noncontrast study. Air within the urinary bladder. Ojeda catheter in place. Asymmetric thickening of the urinary bladder wall associated with peripheral fat stranding. Mild right hydroureteronephrosis with transition point at the UVJ. No kidney or ureteral stones. Irregular liver margins. No evidence of bowel obstruction. No evidence of appendicitis. There is no free fluid or free air. Degenerative changes of the imaged portions of the spine. No acute fractures. L3, and spinous process of L4. Sclerotic lesions in the vertebral bodies of T2 T9 L2, and spinous processes of L4. Sclerotic lesion in the left iliac bone. Sclerotic lesions in the ribs. Fecal loading. Coronary arteries calcifications. Impression: Acute cystitis associated with right hydroureteronephrosis. Possible urinary bladder cancer. Fecal loading. Sclerotic bone lesions consistent with metastatic bone disease. Indeterminate subcentimeter lung nodules. Follow-up in 3 months is recommended. Cirrhosis. Report Electronically Signed By: Gurinder Bowman 03/21/2025 3:31:33 AM [EST]
[2025-03-21 03:52] LABS: Collection Type, Urine Clean Catch; Squamous Epithelial Cell,Urine 0 /hpf (0-5)
[2025-03-21] MEDS: INSULIN HUM REGULAR 1 UNIT/0.01 ML (PER UNIT) 6 UNIT IV (03:59)
[2025-03-21 04:03] VITALS: BP 141/78; PULSE 74; RESP 17; TEMP 37; O2SAT 98
[2025-03-21 04:06] LABS: Bilirubin,Urine Negative (Negative); Blood,Urine 3+ (Negative); Clarity,Urine Turbid (Clear/Hazy); Color,Urine Brown (Lt Yel-Yel); Culture Indicated,Urine Not Indicated; Glucose, Urine 4+ (Negative); Ketones,Urine Negative (Negative); Leukocyte Esterase,Urine Negative (Negative); Nitrite,Urine Negative (Negative); PH,Urine 6.5 (5.0-7.0); Protein,Urine 2+ (Neg - Trace); RBC,Urine 8 /hpf (0-3); Specific Gravity,Urine 1.024 (1.001-1.035); Urobilinogen,Urine Negative mg/dL (0.0-1.0); WBC,Urine 1 /hpf (0-5)
[2025-03-21 04:56] LABS: Reflex Lactate? Y
[2025-03-21] MEDS: cefTRIAXone/D5w 1gm IV premix 1 G/50 ML BAG IV (05:00)
[2025-03-21 05:05] VITALS: BP 127/72; PULSE 76; RESP 18; TEMP 36.7; O2SAT 99
[2025-03-21 05:09] LABS: Lactic Acid, 3 HR 1.9 mMol/L (0.4-2.0)
[2025-03-21 05:28] LABS: Anion Gap 11 (7-16); BUN/Creatinine Ratio 17 Ratio (12-20); Blood Urea Nitrogen 32 mg/dL (9-23); Calcium 8.1 mg/dL (8.3-10.6); Carbon Dioxide 21.3 mMol/L (20.0-31.0); Chloride 106 mMol/L (98-107); Creatinine (Component) 1.9 mg/dL (0.6-1.3); Estimated Creatinine Clearance 36.7 mL/min (>60); Glucose 295 mg/dL (74-106); Osmolality,Calculated 293 (275-295); Potassium 4.3 mMol/L (3.4-5.1); Sodium 138 mMol/L (136-145); eGFR 36 See Note
== END 2025-03-21 05:11 | disposition home or self-care (01) ==
PROVIDERS: Emergency Provider Emergency Medicine; PCP Nurse Practitioner Family
DX: N40.1 Benign prostatic hyperplasia with lower urinary tract symptoms (principal); N30.01 Acute cystitis with hematuria; C61 Malignant neoplasm of prostate; R33.8 Other retention of urine; Z96.60 Presence of unspecified orthopedic joint implant
CPT/HCPCS: 36415; 71045; 71250; 74176; 80048; 80053; 81001; 82010; 82150; 82248; 82803; 83036; 83605; 83690; 83735; 83880; 84145; 84443; 85025; 85610; 85652; 85730; 86140; 87040; 87086; 96361; 96374; 99284; J0696; J1815; J2270; J2405; J7030

== ENCOUNTER 2025-05-29 07:58 | Emergency (ER) | payer MEDICAID, SELFPAY ==
[2025-05-29 08:14] VITALS: BP 134/70; PULSE 74; RESP 18; TEMP 36.5; O2SAT 99; BMI 30.4
[2025-05-29 10:11] LABS: Collection Type, Urine Voided
[2025-05-29 10:24] LABS: Basophils # (Auto) 0.0 Thou/mm3 (0.0-0.2); Basophils % (Auto) 0 % (0-2.5); Eosinophils # (Auto) 0.3 Thou/mm3 (0.0-0.5); Eosinophils % (Auto) 3 % (0-10); Hematocrit 34.1 % (41.0-53.0); Hemoglobin 11.5 g/dL (13.5-16.0); Immature Granulocytes Auto 0.04 Thou/mm3 (0.00-0.00); Lymphocytes # (Auto) 1.3 Thou/mm3 (1.0-4.8); Lymphocytes % (Auto) 17 % (10-50); Mean Corpuscular HGB Conc 33.7 g/dl (31.0-37.0); Mean Corpuscular Hemoglobin 27.7 pg (25.0-35.0); Mean Corpuscular Volume 82 fL (80-100); Monocytes # (Auto) 0.7 Thou/mm3 (0.0-0.8); Monocytes % (Auto) 8 % (0-12); Neutrophils # (Auto) 5.6 Thou/mm3 (1.8-7.7); Neutrophils % (Auto) 71 % (37-80); Nucleated Red Blood Cell # 0.00 Thou/mm3 (0.00-0.00); Nucleated Red Blood Cell % 0 /100 WBC (0); Platelet Count 276 Thou/mm3 (140-440); RDW Standard Deviation 41.4 fL (35.1-43.9); Red Blood Count 4.15 Miln/mm3 (4.50-5.90); White Blood Count 7.8 Thou/mm3 (3.8-10.6)
[2025-05-29 10:31] LABS: Bacteria,Urine 3+; Bilirubin,Urine Negative (Negative); Blood,Urine 3+ (Negative); Glucose, Urine Negative (Negative); Ketones,Urine Negative (Negative); Leukocyte Esterase,Urine Positive (Negative); Nitrite,Urine Negative (Negative); PH,Urine 6.0 (5.0-7.0); Protein,Urine 2+ (Neg - Trace); RBC,Urine 63 /hpf (0-3); Specific Gravity,Urine 1.016 (1.001-1.035); Squamous Epithelial Cell,Urine 2 /hpf (0-5); Urobilinogen,Urine Negative mg/dL (0.0-1.0); WBC,Urine 358 /hpf (0-5)
[2025-05-29 10:33] LABS: Clarity,Urine Turbid (Clear/Hazy); Color,Urine Lt-Orange (Lt Yel-Yel); Culture Indicated,Urine Yes
[2025-05-29 10:47] LABS: Alanine Aminotransferase 11 U/L (10-49); Albumin, Serum 4.5 gm/dL (3.4-4.8); Albumin/Globulin Ratio 1.3 (1.2-2.2); Alkaline Phosphatase 99 U/L (46-116); Anion Gap 12 (7-16); Aspartate Amino Transferase 15 U/L (0-34); BUN/Creatinine Ratio 20 Ratio (12-20); Bilirubin,Total 0.2 mg/dL (0.3-1.2); Blood Urea Nitrogen 40 mg/dL (9-23); Calcium 9.3 mg/dL (8.3-10.6); Calcium (Corrected) 9.3 mg/dL (8.5-10.1); Carbon Dioxide 21.6 mMol/L (20.0-31.0); Chloride 107 mMol/L (98-107); Creatinine (Component) 2.0 mg/dL (0.6-1.3); Estimated Creatinine Clearance 34.9 mL/min (>60); Globulin 3.5 gm/dL (2.3-3.5); Glucose 146 mg/dL (74-106); Osmolality,Calculated 293 (275-295); Potassium 5.3 mMol/L (3.4-5.1); Sodium 141 mMol/L (136-145); Total Protein 8.0 gm/dL (5.7-8.2); eGFR 34 See Note
--- NOTE | 2025-05-29 10:53 | PD.EDMALE ---
ED Male Genitalurinary RME/HPI General Chief complaint: Urogenital-Male Stated complaint: groin pain x3 days, parham catheter in place Time Seen by Provider: 05/29/25 08:11 Arrival date/time: 05/29/25 07:58 This is a 75-year-old male that comes into the emergency room with complaints of Parham catheter problems. Patient states his Parham catheter was placed because he has history of urinary retention. Patient reports that he has a large prostate and was told he had prostate cancer. Patient has a chronic catheter in place. Patient had a catheter placed about 2 months ago and according to him it was traumatic because they inflated the balloon in the urethra. Since then patient has not wanted to get his catheter changed because he is scared. Patient states he is having dark-colored urine. Patient also has pain around his catheter area. Patient states it palmer. Patient denies any fever, nausea, vomiting, diarrhea. Related Data Home Medications ?Medication ?Instructions ?Recorded ?Confirmed insulin glargine subcut PRN for blood sugar 08/03/24 meloxicam 7.5 mg tablet 7.5 mg PO QDAY 08/03/24 08/03/24 metformin 500 mg tablet mg 08/03/24 omeprazole 20 mg capsule,delayed mg 08/03/24 release tramadol 50 mg tablet 50 mg PO QDAY 08/03/24 08/03/24 tramadol 50 mg tablet mg 08/03/24 Previous Rx's ?Medication ?Instructions ?Recorded nitrofurantoin 100 mg PO BID #14 caps 03/15/25 monohydrate/macrocrystals 100 mg capsule (Macrobid) ondansetron 4 mg disintegrating 4 mg PO Q8H #10 tabs 03/15/25 tablet cefdinir 300 mg capsule 300 mg PO BID #14 caps 03/21/25 Allergies Allergy/AdvReac Type Severity Reaction Status Date / Time No Known Allergies Allergy Verified 05/29/25 08:06 Review of Systems Review of Systems Systems Reviewed: All systems reviewed, normal except as documented Past Medical History Past Medical History NEUROLOGIC: Negative Neurological Disorders or Seizures CARDIAC: Positive Cardiac Disorders and Hypertension; Negative Congestive Heart Failure RESPIRATORY: Negative Chronic Obstructive Pulmonary Disease (COPD) or Asthma GASTROINTESTINAL: Positive Gastrointestinal Disorders and Gastroesophageal Reflux Disease; Negative Gastrointestinal Bleed or Irritable Bowel GENITOURINARY: Positive Genitourinary Disorders, Prostate Cancer and Benign Prostatic Hyperplasia; Negative Renal Disease MUSCULOSKELETAL: Negative Musculoskeletal Disorders ENT: Negative Glaucoma ENDOCRINE: Positive Endocrine Disorders and Diabetes Mellitus Type 2; Negative Diabetes Mellitus Type 1 HEMATOLOGIC: Positive Blood Disorders and Anemia; Negative Sickle Cell Disease OTHER HISTORY: Positive Blood Transfusions, Radiation Therapy, Cancer and Prostate Cancer; Negative Autoimmune Disease, Blood Transfusion Reaction, Anesthesia Reactions, Chemotherapy, MRSA or Clostridium Difficile Family History FAMILY HISTORY: Negative Family Cardiac Disorders Surgical History SURGICAL: Negative Ear Surgery, Abdominal Surgery, Joint Replacement, Neurologic Surgery or Vasectomy Social History SMOKING STATUS: Never smoker SECOND HAND EXPOSURE: No ED Exam Narrative Physical exam: VITAL SIGNS: Reviewed. GENERAL APPEARANCE: Alert and interactive, follows commands, no acute distress HEAD AND FACE: Non-traumatic. ENT: PERRL, conjuctiva pink and clear, eyelid no trauma, Mucous membrane moist. NECK: Supple, nontender, no nuchal rigidity. CHEST: No tenderness, no crepitus, no paradoxical movement, no retractions. LUNGS: breathing even and unlabored HEART: Regular rate, cap refill less than 2 seconds ABDOMEN: Soft, nondistended, no pain to palpation NEUROLOGICAL: Gross motor function intact sensory function intact, Appropriate for age. MUSCULOSKELETAL: low back nontender, full range of motion EXTREMITIES: No redness no swelling no skin breakdown on bilateral foot and leg. Distal neurovascular status intact bilateral foot SKIN: Color pink, dry Course Quality Measures none Orders Category Date Time Status Parham [Urinary Catheter] QS Care 05/29/25 08:28 Completed Urinary Catheter, Remove ONCE Care 05/29/25 08:28 Completed CBC Stat Lab 05/29/25 10:15 Completed Comprehensive Metabolic Panel Stat Lab 05/29/25 10:15 Completed Urinalysis, C/S if Indicated Stat Lab 05/29/25 09:59 Completed Urine Culture Stat Lab 05/29/25 09:59 Completed Acetaminophen Tab [Tylenol ES Tab] Med 05/29/25 11:18 Discontinued 1,000 mg PO X1 ONE Ibuprofen Tab [Motrin Tab] Med 05/29/25 11:18 Discontinued 800 mg PO X1 ONE cefTRIAXone [Rocephin] 1,000 mg Med 05/29/25 10:45 Discontinued Lidocaine 1% Pf Vial 5ml [Xylocaine 1% Pf 5 ml] 2.1 ml IM X1 Vital Signs Vital signs: Vital Signs Temperature 97.7 F 05/29/25 08:14 Pulse Rate 74 05/29/25 08:14 Respiratory Rate 18 05/29/25 08:14 Blood Pressure 134/70 H 05/29/25 08:14 Pulse Oximetry (%) 99 05/29/25 08:14 Oxygen Delivery Method Room Air 05/29/25 08:14 Urogenital - Male MDM Narrative MDM Narrative:: Today Parham catheter was changed. A new Parham catheter was placed. No issues. I will treat patient with a dose of Rocephin Tylenol ibuprofen. Patient told to take antibiotics as prescribed. Patient is to follow-up with urine culture with primary doctor. Patient verbalized understanding and feels comfortable plan of care. Patient's family at bedside listening to the discharge instructions. Labs reviewed white count 7.8 hemoglobin is 11.5 hematocrit 34.1 BMP shows a potassium of 5.3 BUN and creatinine slightly elevated. Patient has had slightly elevated creatinine creatinine has UA shows blood leukocyte esterase we will treat patient with Rocephin. Patient explained the importance of hide his Parham catheter change at least once a month. Patient verbalized understanding. Dragon dictation: Although this document has been carefully reviewed, there may still be some phonetic and other typographical errors. These errors are purely grammatical due to imperfections in the software program and should not be construed in any way to compromise the substance of the patient's medical care during this visit. Patient data External records reviewed:: [facility] previous records Clinical information provided by:: patient Social determinants that could affect healthcare access:: none Patient has the following chronic illnesses:: See note How is presenting disease/condition affected by chronic disease/condition?: no chronic disease Evaluation data The following diagnostics were reviewed and interpreted by me:: lab results Lab and/or radiology exams considered but not ordered:: See note Interpretation Summary: See note Medications / Prescriptions Medications or Prescriptions considered but not ordered:: See note Medication administrations:: Medication Administration History Discontinued Medications Acetaminophen (Acetaminophen 500 Mg Tablet) 1,000 mg PO X1 ONE Stop: 05/29/25 11:19 Last Admin: 05/29/25 12:23 Dose: 1,000 mg Documented By: Ceftriaxone Sodium 1,000 mg/ (Lidocaine HCl 2.1 ml) 0 mg IM X1 ONE Stop: 05/29/25 10:46 Last Admin: 05/29/25 12:22 Dose: 1,000 mg Documented By: Ibuprofen (Ibuprofen Tab 400 Mg Tablet) 800 mg PO X1 ONE Stop: 05/29/25 11:19 Last Admin: 05/29/25 12:23 Dose: 800 mg Documented By: See MAR Consultations Consultation(s) initiated? (list below): No Diagnosis Urogenital Male Differential Diagnosis: urinary tract infection, prostatitis, acute retention of urine and other (Pyelonephritis) Most likely diagnosis given after review of the tests above:: See note Admission Indicated Admission indicated?: not indicated Admission Request Was there a request for admission?: No Disposition Plan Disposition Plan: Discharge Discharge Attestation Discharge Attestation: The patient and all family members were given an opportunity to ask questions and understood the discharge instructions. Discharge instructions specifically effects, indications for sooner follow up or return to the emergency department, and the expected course of current diagnosis. Patient condition: Stable Discharge Plan Plan Patient Disposition: HOME (Self Care) Patient condition on transfer: Stable Prescriptions/Referrals Prescriptions/Med Rec: No Action metformin 500 mg tablet Patient Comments: TAKE 1 TABLET BY MOUTH TWICE DAILY tramadol 50 mg tablet omeprazole 20 mg capsule,delayed release(DR/EC) meloxicam 7.5 mg tablet 7.5 mg PO QDAY tramadol 50 mg tablet 50 mg PO QDAY insulin glargine [Basaglar KwikPen U-100 Insulin] subcut PRN (Reason: for blood sugar ) nitrofurantoin monohyd/m-cryst [Macrobid] 100 mg capsule 100 mg PO BID Qty: 14 0RF Rx Instructions: must administer with a meal/food ondansetron 4 mg tablet,disintegrating 4 mg PO Q8H Qty: 10 0RF cefdinir 300 mg capsule 300 mg PO BID Qty: 14 0RF Problem List Clinical Impression: Acute UTI, Encounter for Parham catheter replacement, Chronic indwelling Parham catheter Patient/Caregiver Discharge Instructions Discharge Activity: activity as tolerated Education Materials: ED Bladder Infection, Male (Adult) Additional Instructions: Arielle un bakari con francisco medico de cabecera en las proximas 24-48 horas. Regrese a la vikki de emergencias si hay evidencia de que los signos o sintomas empeoran. Print Language: Congolese Stand Alone Forms: Antonette Award Info., Patient Portal Info Letter PA/EXPLOSIVE OPERATOR SUPERVISOR Supervising Physician PA/EXPLOSIVE OPERATOR SUPERVISOR Supervising Physician: [email or web address]
[2025-05-29] MEDS: IBUPROFEN TAB 400 MG TABLET 800 MG PO (12:23)
[2025-05-29] MEDS: ACETAMINOPHEN 500 MG TABLET 1000 MG PO (12:23)
== END 2025-05-29 14:01 | disposition home or self-care (01) ==
LOC: SERX 11:03
PROVIDERS: Emergency Provider Nurse Practitioner Family; PCP Nurse Practitioner Family
DX: Z46.6 Encounter for fitting and adjustment of urinary device (principal); N39.0 Urinary tract infection, site not specified
CPT/HCPCS: 36415; 51702; 80053; 81001; 85025; 87077; 87086; 87186; 96372; 99283; A4314; J0696; J3490; A9270